=== PATIENT | male | born 1950 | race Caucasian/White ===

== ENCOUNTER 2018-03-19 08:27 | Inpatient (IN) | payer OTHER, BC ==
[2018-03-19] MEDS ORDERED: MIDAZOLAM HCL 2 MG/2 ML SINGLE DOSE VIAL ONE ×2 (11:26)
[2018-03-19] MEDS ORDERED: PROPOFOL 20 ML ONE ×11 (11:26→18:25)
[2018-03-19] MEDS ORDERED: SUCCINYLCHOLINE CHLORIDE 200 MG/10 ML VIAL ONE (11:31)
[2018-03-19] MEDS ORDERED: morphine SULFATE/Preservative Free 0.5 MG/ML (1cc Syringe) ONE (12:05)
[2018-03-19] MEDS ORDERED: BUPIVACAINE HCL/PF 0.25% (2.5MG/ML) 10 ML VIAL ONE (12:23)
[2018-03-19] MEDS ORDERED: LIDOCAINE HCL 0.5%, 5 MG/ML (50mL SDVIAL) ONE (12:24)
[2018-03-19] MEDS ORDERED: KETAMINE HCL 200 MG/20 ML VIAL ONE ×2 (12:25→15:25)
[2018-03-19] MEDS ORDERED: VANCOMYCIN 1,000 MG VIAL (RESTRICTED TO ID ONLY) ONE ×2 (12:25→12:26)
[2018-03-19] MEDS ORDERED: BUPIVACAINE LIPOSOME/PF (EXPAREL) 266 MG/20 ML VIAL NR ONE (12:45)
[2018-03-19] MEDS ORDERED: VANCOMYCIN 1,000 MG VIAL (RESTRICTED TO ID ONLY) IVPB ONE (13:00)
[2018-03-19] MEDS ORDERED: HEPARIN NA (PORCINE) 5,000 UNITS/ML 1ML VIAL ONE (13:06)
[2018-03-19] MEDS ORDERED: SODIUM CHLORIDE 0.9% P/F 10 ML VIAL IJ ONE ×5 (13:07→19:00)
[2018-03-19] MEDS ORDERED: THROMBIN (BOVINE) 5,000 UNIT VIAL TP ONE (13:07)
[2018-03-19] MEDS ORDERED: ceFAZolin SODIUM 1 GM VIAL ONE ×2 (13:08→18:18)
[2018-03-19] MEDS ORDERED: ONDANSETRON 4 MG/2 ML VIAL ONE ×2 (13:08→19:04)
[2018-03-19] MEDS ORDERED: ceFAZolin SODIUM 1 GM VIAL IVPB ONE (13:25)
[2018-03-19] MEDS ORDERED: TRANEXAMIC ACID 1000 MG/10 ML VIAL ONE (14:40)
[2018-03-19] MEDS ORDERED: ROCURONIUM BROMIDE 50 MG/5 ML VIAL ONE (15:06)
[2018-03-19] MEDS ORDERED: LACTATED RINGERS SOLUTION 1,000 ML IV SCH (15:15)
[2018-03-19] MEDS ORDERED: ACETAMINOPHEN 325 MG TABLET (FP) PO SCH (15:30)
[2018-03-19] MEDS ORDERED: ePHEDrine SULFATE 50 MG/1 ML AMPULE ONE (17:49)
[2018-03-19] MEDS ORDERED: LIDOCAINE HCL/PF 2% SDV 5ML VIAL ONE ×2 (18:14→19:04)
--- NOTE | 2018-03-19 18:28 | PN ---
Progress Note (short form) - Note Progress Note: 68M s/p L1-S1 laminectomies; L2-L3, L3-L4, L4-L5, & L5-S1 PLIF, L1-S1 PISF POD # 0. -Pain control: per anaesthesia team; recommend LEATHER STITCHER; No NSAID's. -DVT PPx: - Mechanical only: KIN's, SCD's. -Incentive spirometry q15min. -PT/OT/Rehab, OOB. -WBAT B/L LE. -q4h B/L LE NV checks. -Post-op antibiotics x 2 doses. -NPO until flatus. -f/u AM labs. -f/u drain output. -d/c Schumacher catheter when patient ambulating comfortably. -Care per medical hospitalist team. -Discharge planning: f/u 7-10 days after discharge at [facility] [place] office; call for appointment; ; no bending, lifting more than 5lbs , or twisting x 6 months. -Will follow. David Durham MD (Orthopaedic Surgery).
--- NOTE | 2018-03-19 18:32 | OP ---
Operative Note - Note: Operative Date: 03/19/18 Pre-Operative Diagnosis: Lumbar spinal stenosis. Progressive neurological decline Operation: 1. L1-S1 laminectomies. 2. L2-L3, L3-L4, L4-L5, & L5-S1 PLIF. 3. L1 -S1 PISF. 4. Autograft bone. 5. Allograft bone. 6. Bone marrow aspiration Post-Operative Diagnosis: Same as Pre-op Surgeon: Claudio Durham Fitter Mechanic: David Durham Anesthesiologist/PIG STICKER: Betty Hung Anesthesia: General Specimens Removed: L2-L3, L3-L4, L4-L5, & L5-S1 discs Estimated Blood Loss (mls): 2,400 Drains & Tubes with Location: 1 x superficial drain Blood Volume Replaced (mls): 1,175 (Cell Saver) Fluid Volume Replaced (mls): 4,000 (Crystalloid) Operative Report Dictated: Yes
[2018-03-19] MEDS ORDERED: PHENYLEPHRINE HCL 10 MG/1 ML SINGLE DOSE VIAL ONE (19:00)
[2018-03-19] MEDS ORDERED: KETOROLAC TROMETHAMINE 30 MG/1 ML VIAL ONE (19:00)
[2018-03-19] MEDS ORDERED: VASOPRESSIN 20 UNITS/ML VIAL IV ONE (19:03)
[2018-03-19] MEDS ORDERED: CALCIUM CHLORIDE 1 GM/10 ML *DISP.SYRIN ONE (19:03)
[2018-03-19] MEDS ORDERED: FUROSEMIDE 40 MG/4 ML INJECTABLE VIAL ONE (19:03)
[2018-03-19] MEDS ORDERED: hydrALAZINE HCL 20 MG/ML VIAL ONE (19:04)
[2018-03-19] MEDS ORDERED: GLYCOPYRROLATE 0.2 MG/1 ML VIAL ONE (19:04)
[2018-03-19] MEDS ORDERED: FLUMAZENIL 0.5 MG/5 ML VIAL ONE (19:04)
[2018-03-19] MEDS ORDERED: TIOTROPIUM BROMIDE 2.5 MCG (SPIRIVA) RESPIMAT INHALER IH SCH (20:32)
[2018-03-19] MEDS ORDERED: ONDANSETRON 4 MG/2 ML VIAL IVPUSH PRN (20:32)
[2018-03-19] MEDS: LACTATED RINGERS SOLUTION 1,000 ML IV SCH (20:45)
[2018-03-19] MEDS: ACETAMINOPHEN 1000 MG/100 ML VIAL (NON FORMULARY) IVPB SCH ×2 (20:45→21:20)
--- NOTE | 2018-03-19 21:15 | PN ---
Physical Exam: SUBJECTIVE: Patient seen and examined at PACU. He is awake but still groggy as he just got out of the OR. Patient is s/p L1-S1 PLIF day 0. Patient c/o of back discomfort. States he has not yet passed flatus but has good urine output. He has superficial drain x1. Estimated blood loss was 2400cc. Patient was given IV LR and 1pRBC during the surgery. No reported post-op complications. OBJECTIVE: Vital Signs Period Temp Pulse Resp BP Sys/Avalos Pulse Ox Last 24 Hr 98.0 F 117 18 118/78 100 GENERAL: The patient is awake, drowsy, and oriented x3, in no acute distress. HEAD: Normal with no signs of trauma. EYES: PERRLA, EOMI, sclera anicteric, conjunctiva clear. ENT: Ears normal, nares patent, oropharynx clear without exudates, moist mucous membranes. NECK: Trachea midline, full range of motion, supple. LUNGS: Breath sounds equal, clear to auscultation bilaterally. HEART: Regular rate and rhythm, S1, S2 without murmur, rub or gallop. ABDOMEN: Soft, nontender, nondistended, normoactive bowel sounds EXTREMITIES: 2+ pulses, warm, well-perfused, no edema. NEUROLOGICAL: Cranial nerves II through XII grossly intact. Normal speech, gait not observed. PSYCH: Normal mood, normal affect. SKIN: Warm, dry, normal turgor, no rashes or lesions noted Laboratory Results - last 24 hr 03/19/18 08:48 Blood Type O POSITIVE Antibody Screen Negative Active Medications Generic Name Dose Route Start Last Admin Trade Name Freq PRN Reason Stop Dose Admin Acetaminophen 1,000 mg 03/19/18 20:45 Ofirmev Injection - IVPB 03/21/18 12:46 Q8H ZAIDA Acetaminophen 650 mg 03/19/18 20:45 Tylenol - PO Q6H ZAIDA Cefazolin Sodium/Dextrose 2 gm 03/20/18 02:00 Ancef 2 Gm Premixed Ivpb - IVPB 03/20/18 10:01 Q8H [facility] Fentanyl 50 mcg 03/19/18 15:13 Sublimaze Injection - IVPUSH [id number] PRN PAIN-PACU ORDER X 4 DOSES ONLY Gabapentin 300 mg 03/20/18 22:00 Neurontin - PO BID ZAIDA Hydrochlorothiazide 12.5 mg 03/20/18 10:00 Hctz - PO DAILY [facility] Lactated Ringer's 1,000 mls @ 125 mls/hr 03/19/18 20:45 Lactated Ringers Solution IV ASDIR [facility] Montelukast Sodium 10 mg 03/19/18 20:32 Singulair - PO HS PRN SHORTNESS OF BREATH Non-Formulary Medication 18 mcg 03/19/18 20:32 Tiotropium [place] [Spiriva] IH PRN PRN ASTHMA Ondansetron HCl 4 mg 03/19/18 15:13 Zofran Injection IVPUSH Q6H PRN NAUSEA AND/OR VOMITING Oxycodone HCl 10 mg 03/20/18 22:00 Oxycontin - PO BID ZAIDA Oxycodone HCl 5 mg 03/19/18 15:16 Roxicodone - PO Q3H PRN PAIN LEVEL 1-5 Oxycodone HCl 10 mg 03/19/18 15:16 Roxicodone - PO Q3H PRN PAIN LEVEL 6-10 Valsartan 320 mg 03/20/18 10:00 Diovan - PO DAILY [facility] ASSESSMENT/PLAN: Patient is a 68 year old male with past medical history of asthma, CHF, and HTN , is s/p L1-S1 Posterior Lumbar Interbody Fusion after presenting with low back pain radiating down both LE. #s/p L1-S1 Posterior lumbar interbody fusion -Cefazolin 2 gm q8h started. -incentive spirometry q15 mins -Pain control as per anesthesia. -FIBER PICKER recommended: Oxycodone 5mg q3h for pain level 1-5, Oxycodone 10mg q3h for pain level 6-10 -NPO until flatus. -CBC, BMP in the AM -monitor drain output -PT/OT rehab, weight bearing as tolerated b/l LE -may discontinue thompson catheter when patient is able to ambulate comfortably. #Asthma: controlled -Continue Spiriva 18 mcg IH PRN -Montelukast 10 mg PO HS PRN for SOB #HTN: chronic -continue home medication Telmisartan/HCTZ daily -monitor BP #FEN -IV LR at 75ml/hr -electrolyes wnl, routine bmp monitoring in the AM -NPO until flatus #Prophylaxis -TEDs, SCDs #Disposition -full code Visit type - Emergency Visit Emergency Visit: No - New Patient This patient is new to me today: Yes Date on this admission: 03/20/18 - Critical Care Critical Care patient: No
[2018-03-19] MEDS ORDERED: ACETAMINOPHEN INJECTION 100 ML IVPB ONE (21:25)
--- NOTE | 2018-03-19 21:45 | OP ---
DATE OF OPERATION: 03/19/2018 SURGEON: Claudio Durham MD PRODUCTION FINISHER: David Durham MD PREOPERATIVE DIAGNOSES: Spinal stenosis, L1 to S1, with associated kyphosis, segmental instability. POSTOPERATIVE DIAGNOSES: Spinal stenosis, L1 to S1, with associated kyphosis, segmental instability. OPERATION PERFORMED: 1. Laminectomy, L1 to S1. That is L2, L3, L4, L5, and S1. 2. Posterior lumbar interbody fusion, L2-3, L3-4, L4-5, L5-S1. 3. Pedicle screw instrumentation, L1, L2, L3, L4, L5, S1. 4. Posterolateral arthrodesis, L1, L2, L3, L4, L5, S1. 5. Welch-Pruett osteotomy, L2-3. 6. Bone marrow aspirate concentrate mixed with autologous bone and expanded with allograft bone. 7. Use of biplane fluoroscopy and intraoperative neuromonitoring. 8. Complex wound closure, 25 cm. ANESTHESIA: General. ANTIBIOTICS GIVEN: Kefzol 2 g, vancomycin 1 g; Kefzol 1 g was given intraoperatively. BLOOD LOSS: 2.3 L; 1100 mL Cell Saver blood given back. OPERATION DETAILS: Patient correctly identified, brought into the operating room, placed prone on gel rolls on a spinal table. Each bony prominence was appropriately padded for his upper limbs and lower limbs including iliac crests, pretibial regions as well as prepatellar areas, combined with the sternum and ensuring that the brachial plexus was relaxed by the positioning of the arms. The eyes were appropriately padded as well. The operation performed with the table at 10 degrees of head up, that is anti-Trendelenburg. Routine prep and draping with Betadine scrub solution, wiped off with alcohol, DuraPrep applied. A window drape applied. Midline incision utilized. We exposed from the tip of the spinous process of T12 to S1. A subperiosteal dissection was performed. Lateral fluoroscopic x-rays with Kochers placed in the interspinous processes were utilized to ensure the correct levels for surgical intervention. This was planned L1 to S1. Using Leksell rongeurs and Kerrison upcuts numbers 5 and 6, a central laminectomy was performed. All bone was saved for appropriate bone graft purposes. The appropriate dura which was severely stenosed at L2-3, L3-4, and L4-5 was freed centrally, and then, following this, using osteotomes, the incision was made longitudinally from the pars interarticularis into the inferior facets. Each element imploded inwards to expose the superior facets at each level. Each superior facet was then resected appropriately, keeping all neural elements out of harm's way, packing the gutters with patties and delivering the bone and reactive bone formation in the foramina at every level appropriately. The entire theca was freed. The nerves were visualized, clearly exiting out through the foramina. Once this had been performed, the dura was retracted at L3-4, L4-5, and L5-S1 from the right to left-hand side. Epidural veins were dealt with with bipolar Bovie. The dura, the disks at L2-3, was retracted from left to right. Each disk was dealt with in exactly the same manner. The epidural veins were bovied with bipolar Bovie. Each disk annulotomy was performed with an 11 blade, and this was a cruciate incision, allowing the alfa to enter each disk appropriately. The disks at L2-3 measured 9 mm. The cages at L4-5, L5-S1 measured 12 mm, and the L3-4 cage measured 11 mm. These were Fortilink spacers. Each interbody space was freed of all disk material. We used the alfa, pituitary rongeurs, and serrated curettes appropriately, palpated each disk. All soft tissue removed off the endplates, and each interbody space was packed with autologous bone graft. This was bone harvested from the posterior elements, milled in a [employer] mill, and packed into the interbody space at L2-3, L3-4, L4-5, and L5-S1, using 4 cages, were inserted appropriately. The orthodox of the lordosis was achieved excellently with the insertion of each of these lordosis cages. Each cage itself was packed with autologous bone. A Welch-Pruett osteotomy was then performed at L3-4 in order to facilitate lordosis as well. In order to gain access to the L2-3 disk level, the disk was so shut down posteriorly that a partial corpectomy was necessary in order to achieve this entry into the disk. This was using a Kerrison upcuts. This was thus a partial corpectomy at L3. The pedicles from L1 to S2 were identified using anatomical guidelines and lateral fluoroscopic x-ray. Each pedicle was drilled with a 4.5 drill bit. Each pedicle was palpated with a ball-tip feeler and the screws inserted with no difficulty. They were measured with intraoperative neuromonitoring and found to be well above 20 mA for each screw except in the right L4 screw which measured 13 mA. The rods were contoured onto the actual screws. Screw heads tightened with the appropriate cap devices. The ruth was fixed to the ruth. No crosslink applied. The dura was once again inspected and thoroughly lavaged and found to be completely intact. The muscle was gently retracted off the intertransverse plane and a liberal bone grafting. This was a mixture of cancellous strips which were soaked in bone marrow aspirate concentrate. This bone marrow aspirate concentrate was harvested from the posterior ilium separately. A Jamshidi needle was placed into the ilium for the CD34 stem cells. This was mixed appropriately, thus achieving an augmented autologous/allograft combination with stem cells appropriately. This was from L1 to S1 and the ala of the sacrum. The ala of the sacrum clearly denuded of soft tissue appropriately. With regard to the screw fixation, each screw measured 45 x 6.5 mm excepting the S1 screws which measured 40 x 7.5 mm. Once all were seated, final motor evoked potentials and SSEPs which were monitored throughout the procedure and found no complications and remained at baseline. The pars interarticularis area laterally was infused with Marcaine and simply for pain management, and prior to the procedure, an intrathecal fentanyl as well as Duramorph injection given for pain management accordingly. The muscle was appropriately debrided. Any trimmed muscle that was fragmented was removed. The closure was as follows: Muscle 1 Vicryl, fascia 1 Vicryl, subcutaneous 1 and 2-0 Vicryl, skin 3-0 Monocryl with Steri-Strips. Drainage: 1/8 inch x1. OVERALL COMMENT: Extensive operation went well. No complications. MD LEYDI Hernandez/[id number]
--- NOTE | 2018-03-19 22:09 | PN ---
Teaching Attending Note Name of Resident: Viji Norman ATTENDING PHYSICIAN STATEMENT I saw and evaluated the patient. I reviewed the resident's note and discussed the case with the resident. I agree with the resident's findings and plan as documented. SUBJECTIVE: Patient is s/p L1-S1 laminectomies; L2-L3, L3-L4, L4-L5, L5-S1 posterior lumbar interbody fusion; L1-S1 posterior spinal instrumented fusion. He complains of back pain. OBJECTIVE: Vital Signs Period Temp Pulse Resp BP Sys/Avalos Pulse Ox Last 24 Hr 98.0 F-98.7 F 88-120 14-19 81-136/51-85 97-100 HEART: S1S2, tachycardic LUNGS: Clear ABDOMEN: Soft, non-tender, non-distended, normal BS EXTREMITIES: No edema Laboratory Results - last 24 hr 03/19/18 08:48 Blood Type O POSITIVE Antibody Screen Negative Current Medications Generic Name Dose Route Start Last Admin Trade Name Freq PRN Reason Stop Dose Admin Acetaminophen 1,000 mg 03/19/18 20:45 03/19/18 21:20 Ofirmev Injection - IVPB 03/21/18 12:46 1,000 mg Q8H ZAIDA Administration Acetaminophen 650 mg 03/19/18 20:45 Tylenol - PO Q6H ZAIDA Cefazolin Sodium/Dextrose 2 gm 03/20/18 02:00 Ancef 2 Gm Premixed Ivpb - IVPB 03/20/18 10:01 Q8H [facility]AIDA Fentanyl 50 mcg 03/19/18 15:13 Sublimaze Injection - IVPUSH [id number] PRN PAIN-PACU ORDER X 4 DOSES ONLY Gabapentin 300 mg 03/20/18 22:00 Neurontin - PO BID ZAIDA Hydrochlorothiazide 12.5 mg 03/20/18 10:00 Hctz - PO DAILY [facility]AIDA Lactated Ringer's 1,000 mls @ 125 mls/hr 03/19/18 20:45 Lactated Ringers Solution IV ASDIR ZAIDA Montelukast Sodium 10 mg 03/19/18 20:32 Singulair - PO HS PRN SHORTNESS OF BREATH Non-Formulary Medication 18 mcg 03/19/18 20:32 Tiotropium [place] [Spiriva] IH PRN PRN ASTHMA Ondansetron HCl 4 mg 03/19/18 15:13 Zofran Injection IVPUSH Q6H PRN NAUSEA AND/OR VOMITING Oxycodone HCl 10 mg 03/20/18 22:00 Oxycontin - PO BID ZAIDA Oxycodone HCl 5 mg 03/19/18 15:16 Roxicodone - PO Q3H PRN PAIN LEVEL 1-5 Oxycodone HCl 10 mg 03/19/18 15:16 Roxicodone - PO Q3H PRN PAIN LEVEL 6-10 Valsartan 320 mg 03/20/18 10:00 Diovan - PO DAILY ZAIDA ASSESSMENT AND PLAN: This is a 68 year old man with a history of lumbar spinal stenosis, HTN, CHF, asthma who presented today for lumbar laminectomies and fusions. 1. Lumbar spinal stenosis - s/p multilevel laminectomies and fusions - EBL 2400 cc - monitor hemoglobin - Pain control - Continue Neurontin - Incentive spirometer - Physical therapy - SCDs and TEDs for DVT prophylaxis 2. HTN - Continue Micardis, HCTZ 3. CHF - Stable 4. Asthma - Stable - Continue Nava Florentino
[2018-03-19 22:15] LABS: HEMATOCRIT 40.7 % (35.4-49); HEMOGLOBIN 13.3 GM/dL (11.7-16.9); MCH 29.3 pg (25.7-33.7); MCHC 32.6 g/dl (32.0-35.9); MEAN PLT VOLUME 9.2 fl (7.5-11.1); PLATELET COUNT 207 K/MM3 (134-434); RBC 4.52 M/mm3 (4.00-5.60); RDW 13.7 % (11.9-15.9); WHITE BLOOD COUNT 13.5 K/mm3 (4.0-10.0)
--- NOTE | 2018-03-20 00:39 | CONSULT ---
Consultation: REQUESTING PROVIDER: CONSULT REQUEST: ICU monitoring HISTORY OF PRESENT ILLNESS: The patient is a 68 year old male with a PMH of anterior c spine surgery, HTN, admitted to ICU for monitoring s/p L1-S1 laminectomies, L2-L3, L3-L4, L4-L5, & L5-S1 PLIF, L1-S1 PISF. Blood loss 2400 ml, 1 u of PRBC given in ER. After arrival to ICU he is AAOx3, no acute distress, not complaining of pain, BP 118/98, HR 110, RR 16, Oxyg. Sat 98 on RA, CBC: WBC 13.5, Hgb 13.3, HCT 40.7. PSH: anterior c cpine SH: denies toxic habits. 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 FH: mother OA, father: DM, sister RA, heart disease REVIEW OF SYSTEMS: CONSTITUTIONAL: Absent: fever, chills, diaphoresis, generalized weakness, malaise HEENT: Absent: nasal congestion, throat pain, throat swelling, visual changes CARDIOVASCULAR: Absent: chest pain, syncope, palpitations, irregular heart rate, lightheadedness , RESPIRATORY: Absent: cough, shortness of breath, wheezing, GASTROINTESTINAL: Absent: abdominal pain, abdominal distension, nausea, vomiting, diarrhea, constipation, GENITOURINARY: Absent: dysuria, frequency, urgency, hesitancy, hematuria, MUSCULOSKELETAL: Absent: myalgia, arthralgia, joint swelling NEUROLOGIC: Absent: headache, focal weakness or paresthesias, dizziness, unsteady gait, seizure, mental status changes, bladder or bowel incontinence PSYCHIATRIC: Absent: anxiety, depression PHYSICAL EXAMINATION Vital Signs - 24 hr 03/19/18 03/19/18 03/19/18 09:11 20:17 20:30 Temperature 98.0 F 98.7 F Pulse Rate 88 108 H 109 H Respiratory 18 19 18 Rate Blood Pressure 136/85 87/51 95/62 O2 Sat by Pulse 97 100 100 Oximetry (%) 03/19/18 03/19/18 03/19/18 20:45 21:00 21:15 Temperature Pulse Rate 120 H 116 H 115 H Respiratory 16 18 14 Rate Blood Pressure 81/52 88/54 87/58 O2 Sat by Pulse 98 98 100 Oximetry (%) 03/19/18 03/19/18 03/19/18 21:30 21:45 22:00 Temperature Pulse Rate 116 H 110 H 111 H Respiratory 18 16 16 Rate Blood Pressure 99/74 118/98 104/57 O2 Sat by Pulse 100 98 99 Oximetry (%) 03/19/18 03/19/18 03/19/18 22:15 22:30 23:09 Temperature 98.7 F Pulse Rate 109 H 111 H Respiratory 18 16 Rate Blood Pressure 104/57 90/59 O2 Sat by Pulse 100 98 98 Oximetry (%) 03/19/18 03/20/18 23:22 00:08 Temperature 97.3 F L Pulse Rate 109 H 108 H Respiratory 21 18 Rate Blood Pressure 93/62 105/69 O2 Sat by Pulse Oximetry (%) GENERAL: Awake, alert, and fully oriented, in no acute distress. HEAD: Normal with no signs of trauma. EYES: Pupils equal, round and reactive to light, extraocular movements intact, sclera anicteric, conjunctiva clear. EARS, NOSE, THROAT: Ears normal, nares patent, oropharynx clear without exudates. Moist mucous membranes. NECK: Normal range of motion, supple without lymphadenopathy. LUNGS: Breath sounds equal, clear to auscultation bilaterally. No wheezes, and no crackles. No accessory muscle use. HEART: Regular rate and rhythm, normal S1 and S2 without murmur, rub or gallop. ABDOMEN: Soft, nontender, not distended, normoactive bowel sounds, no guarding, no rebound, no masses. MUSCULOSKELETAL: Normal range of motion at all joints. No bony deformities or tenderness. UPPER EXTREMITIES: No peripheral edema. LOWER EXTREMITIES: 2+ pulses, no peripheral edema. NEUROLOGICAL: Non focal, motor 5/5, sensation intact, no slurred speech. PSYCHIATRIC: Cooperative. Good eye contact. Appropriate mood and affect. SKIN: Warm, dry, normal turgor, no rashes, one drain present, dressing applied. Laboratory Results - last 24 hr 03/19/18 03/19/18 03/19/18 08:48 20:05 20:35 WBC 13.5 H RBC 4.52 Hgb 13.3 Hct 40.7 MCV 90.0 MCH 29.3 MCHC 32.6 RDW 13.7 Plt Count 207 MPV 9.2 Blood Type O POSITIVE O POSITIVE Antibody Screen Negative Active Medications Generic Name Dose Route Start Last Admin Trade Name Freq PRN Reason Stop Dose Admin Acetaminophen 1,000 mg 03/19/18 20:45 03/19/18 21:20 Ofirmev Injection - IVPB 03/21/18 12:46 1,000 mg Q8H [facility] Administration Acetaminophen 650 mg 03/19/18 20:45 Tylenol - PO Q6H [facility] Cefazolin Sodium/Dextrose 2 gm 03/20/18 02:00 Ancef 2 Gm Premixed Ivpb - IVPB 03/20/18 10:01 Q8H [facility] Fentanyl 50 mcg 03/19/18 15:13 03/19/18 22:15 Sublimaze Injection - IVPUSH 50 mcg [id number] PRN Administration PAIN-PACU ORDER X 4 DOSES ONLY Gabapentin 300 mg 03/20/18 22:00 Neurontin - PO BID [facility] Hydrochlorothiazide 12.5 mg 03/20/18 10:00 Hctz - PO DAILY [facility] Lactated Ringer's 1,000 mls @ 125 mls/hr 03/19/18 20:45 Lactated Ringers Solution IV ASDIR [facility] Montelukast Sodium 10 mg 03/19/18 20:32 Singulair - PO HS PRN SHORTNESS OF BREATH Non-Formulary Medication 18 mcg 03/19/18 20:32 Tiotropium [place] [Spiriva] IH PRN PRN ASTHMA Ondansetron HCl 4 mg 03/19/18 15:13 Zofran Injection IVPUSH Q6H PRN NAUSEA AND/OR VOMITING Oxycodone HCl 10 mg 03/20/18 22:00 Oxycontin - PO BID [facility] Oxycodone HCl 5 mg 03/19/18 15:16 Roxicodone - PO Q3H PRN PAIN LEVEL 1-5 Oxycodone HCl 10 mg 03/19/18 15:16 Roxicodone - PO Q3H PRN PAIN LEVEL 6-10 Valsartan 320 mg 03/20/18 10:00 Diovan - PO DAILY [facility] ASSESSMENT/PLAN: The patient is a 68 year old male admitted to ICU for monitoring s/p L1-S1 laminectomies, L2-L3, L3-L4, L4-L5, & L5-S1 PLIF, L1-S1 PISF. -Pain control per anaesthesia team: Oxycodone PRN -f/u surgery recommendations -cont LR at 125 cc/hr -incentive spirometry -neuro checks every 4hrs -Post-op antibiotics x 2 doses. -NPO -cont Zofran for N/V -f/u BMP and CBC in AM -monitor drain output -cont home meds tomorrow -continue Schumacher for now, DC when ambulating -DVT PPx: mechanical, scds Dispo: We will continue to follow the patient. Thank you for this consultative opportunity. Problem List - Problems (1) Status post lumbar surgery Code(s): Z98.890 - OTHER SPECIFIED POSTPROCEDURAL STATES Visit type - Emergency Visit Emergency Visit: Yes ED Registration Date: 03/19/18 Care time: The patient presented to the Emergency Department on the above date and was hospitalized for further evaluation of their emergent condition. - New Patient This patient is new to me today: Yes Date on this admission: 03/20/18 - Critical Care Critical Care patient: Yes Total Critical Care Time (in minutes): 40 Critical Care Statement: The care of this patient involved high complexity decision making to prevent further life threatening deterioration of the patient 's condition and/or to evaluate & treat vital organ system(s) failure or risk of failure.
[2018-03-20] MEDS: ONDANSETRON 4 MG/2 ML VIAL IVPUSH PRN ×2 (01:47→10:47)
[2018-03-20] MEDS: ceFAZolin 2 GRAM PREMIX BAG IVPB SCH ×2 (03:05→10:16)
[2018-03-20] MEDS: ACETAMINOPHEN 1000 MG/100 ML VIAL (NON FORMULARY) IVPB SCH ×3 (05:45→20:47)
[2018-03-20 06:29] LABS: MCH 29.2 pg (25.7-33.7); MCHC 32.4 g/dl (32.0-35.9); MEAN CELL VOLUME 90.2 fl (80-96); MEAN PLT VOLUME 8.9 fl (7.5-11.1); PLATELET COUNT 157 K/MM3 (134-434); RBC 3.77 M/mm3 (4.00-5.60); RDW 14.1 % (11.9-15.9); WHITE BLOOD COUNT 12.9 K/mm3 (4.0-10.0)
[2018-03-20 06:49] LABS: ANION GAP 11 (8-16); BLOOD UREA NITROGEN 16 mg/dL (7-18); CALCIUM 7.8 mg/dL (8.5-10.1); CHLORIDE 104 mmol/L (98-107); CO2 26 mmol/L (21-32); GLUCOSE,RANDOM 152 mg/dL (74-106); POTASSIUM 4.3 mmol/L (3.5-5.1); SODIUM 141 mmol/L (136-145)
[2018-03-20 06:51] LABS: CREATININE 1.2 mg/dL (0.7-1.3)
--- NOTE | 2018-03-20 09:35 | PN ---
Progress Note (short form) - Note Progress Note: Anesthesia postop note 68 y/o M, s/p GA for L1S1 PLIF, duramorph and fentanyl IT for postop pain management. POD#1, vss, aaox3, no complaints, sensory motor intact distally. No anesthesia complications.
[2018-03-20] MEDS ORDERED: HYDROCHLOROTHIAZIDE 12.5 MG CAPSULE (FP) PO SCH (10:00)
[2018-03-20] MEDS ORDERED: PATIENT'S OWN MEDICATION (NON-FORMULARY) (Telmisartan/Hydrochlorothiazid [Micardis Hct 80- PO SCH (10:00)
[2018-03-20] MEDS ORDERED: VALSARTAN 160 MG TABLET (UD) PO SCH (10:00)
--- NOTE | 2018-03-20 11:38 | PN ---
Teaching Attending Note Name of Resident: Cass Kohler ATTENDING PHYSICIAN STATEMENT I saw and evaluated the patient. I reviewed the resident's note and discussed the case with the resident. I agree with the resident's findings and plan as documented. SUBJECTIVE: Pt seen and examined in the ICU. Pain controlled. No shortness of breath or chest pain. +flatus this AM. OBJECTIVE: Vital Signs Period Temp Pulse Resp BP Sys/Avalos Pulse Ox Last 24 Hr 97.3 F-98.7 F 100-120 12-22 81-124/51-98 94-100 Intake & Output 03/17/18 03/18/18 03/19/18 03/20/18 23:59 23:59 23:59 23:59 Intake Total 6375 1125 Output Total 3400 300 Balance 2975 825 Gen: NAD at rest Heart: RRR Lung: decreased breath sounds at the bases Abd: soft, nontender Ext: no edema Drain with serosanguinous drainage CBC, BMP 03/20/18 05:30 03/20/18 05:30 Active Medications Acetaminophen (Ofirmev Injection -) 1,000 mg IVPB Q8H [facility] Stop: 03/21/18 12:46 Last Admin: 03/20/18 05:45 Dose: 1,000 mg Acetaminophen (Tylenol -) 650 mg PO Q6H [facility] Fentanyl (Sublimaze Injection -) 50 mcg IVPUSH [id number] PRN PRN Reason: PAIN-PACU ORDER X 4 DOSES ONLY Last Admin: 03/19/18 22:15 Dose: 50 mcg Gabapentin (Neurontin -) 300 mg PO BID [facility] Hydrochlorothiazide (Hctz -) 12.5 mg PO DAILY [facility] Last Admin: 03/20/18 10:16 Dose: 12.5 mg Lactated Ringer's (Lactated Ringers Solution) 1,000 mls @ 125 mls/hr IV ASDIR ZAIDA Last Admin: 03/19/18 20:45 Dose: Not Given Montelukast Sodium (Singulair -) 10 mg PO HS PRN PRN Reason: SHORTNESS OF BREATH Non-Formulary Medication (Tiotropium [place] [Spiriva]) 18 mcg IH PRN PRN PRN Reason: ASTHMA Oxycodone HCl (Oxycontin -) 10 mg PO BID [facility] Oxycodone HCl (Roxicodone -) 5 mg PO Q3H PRN PRN Reason: PAIN LEVEL 1-5 Oxycodone HCl (Roxicodone -) 10 mg PO Q3H PRN PRN Reason: PAIN LEVEL 6-10 Valsartan (Diovan -) 320 mg PO DAILY [facility]AIDA Last Admin: 03/20/18 10:16 Dose: 320 mg ASSESSMENT AND PLAN: Lumbar Spinal Stenosis s/p L1-S1 Laminectomies/Posterior Fusions Acute Blood Loss Anemia HTN Asthma Hyperlipidemia - pain control - incentive spirometry - PO as tolerated - monitor drain output - jay d/c'd - rehab/PT - DVT prophylaxis/disposition per surgery
--- NOTE | 2018-03-20 12:01 | PN ---
Physical Exam: SUBJECTIVE: Patient seen and examined at bedside. no acute events overnight. patient is complaining of minimal pain and some slight nausea. his drain is putting out minimal output. he denies any CP/SOB/N/V. OBJECTIVE: Vital Signs Period Temp Pulse Resp BP Sys/Avalos Pulse Ox Last 24 Hr 97.3 F-98.7 F 100-120 12-22 81-124/51-98 94-100 GENERAL: The patient is awake, alert, and fully oriented, in no acute distress.. LUNGS: Breath sounds equal, clear to auscultation bilaterally, no wheezes, no crackles, no accessory muscle use. HEART: Regular rate and rhythm, S1, S2 without murmur, rub or gallop. ABDOMEN: Soft, nontender, nondistended, normoactive bowel sounds, no guarding, no rebound, no hepatosplenomegaly, no masses. EXTREMITIES: 2+ pulses, warm, well-perfused, no edema. NEUROLOGICAL: Cranial nerves II through XII grossly intact. Normal speech, gait not observed. PSYCH: Normal mood, normal affect. SKIN: Warm, dry, normal turgor, no rashes or lesions noted Laboratory Results - last 24 hr 03/19/18 03/19/18 03/19/18 08:48 20:05 20:35 WBC 13.5 H RBC 4.52 Hgb 13.3 Hct 40.7 MCV 90.0 MCH 29.3 MCHC 32.6 RDW 13.7 Plt Count 207 MPV 9.2 Sodium Potassium Chloride Carbon Dioxide Anion Gap BUN Creatinine Creat Clearance w eGFR Random Glucose Calcium Blood Type O POSITIVE O POSITIVE Antibody Screen Negative 03/20/18 03/20/18 05:30 05:30 WBC 12.9 H RBC 3.77 L Hgb 11.0 L Hct 34.0 L D MCV 90.2 MCH 29.2 MCHC 32.4 RDW 14.1 Plt Count 157 D MPV 8.9 Sodium 141 Potassium 4.3 Chloride 104 Carbon Dioxide 26 Anion Gap 11 BUN 16 Creatinine 1.2 Creat Clearance w eGFR > 60 Random Glucose 152 H Calcium 7.8 L Blood Type Antibody Screen Active Medications Generic Name Dose Route Start Last Admin Trade Name Freq PRN Reason Stop Dose Admin Acetaminophen 1,000 mg 03/19/18 20:45 03/20/18 11:44 Ofirmev Injection - IVPB 03/21/18 12:46 1,000 mg Q8H ZAIDA Administration Acetaminophen 650 mg 03/19/18 20:45 Tylenol - PO Q6H ZAIDA Fentanyl 50 mcg 03/19/18 15:13 03/19/18 22:15 Sublimaze Injection - IVPUSH 50 mcg [id number] PRN Administration PAIN-PACU ORDER X 4 DOSES ONLY Gabapentin 300 mg 03/20/18 22:00 Neurontin - PO BID ZAIDA Hydrochlorothiazide 12.5 mg 03/20/18 10:00 03/20/18 10:16 Hctz - PO 12.5 mg DAILY ZAIDA Administration Lactated Ringer's 1,000 mls @ 125 mls/hr 03/19/18 20:45 03/19/18 20:45 Lactated Ringers Solution IV Not Given ASDIR ZAIDA Montelukast Sodium 10 mg 03/19/18 20:32 Singulair - PO HS PRN SHORTNESS OF BREATH Non-Formulary Medication 18 mcg 03/19/18 20:32 Tiotropium [place] [Spiriva] IH PRN PRN ASTHMA Oxycodone HCl 10 mg 03/20/18 22:00 Oxycontin - PO BID ZAIDA Oxycodone HCl 5 mg 03/19/18 15:16 Roxicodone - PO Q3H PRN PAIN LEVEL 1-5 Oxycodone HCl 10 mg 03/19/18 15:16 Roxicodone - PO Q3H PRN PAIN LEVEL 6-10 Valsartan 320 mg 03/20/18 10:00 03/20/18 10:16 Diovan - PO 320 mg DAILY ZAIDA Administration ASSESSMENT/PLAN: 68 y/o male with PMH of asthma, CHF, HTN, is s/p L1-S1 laminectomies, L2-S1 PLIF , L1-S1 PISF now POD #1. POD#1: L1-S1 laminectomies,L2-S1 PLIF,L1-S1 PISF -oxycodone for pain control -zofran for nausea -monitor drain output -incentive spirometry -OOB to chair -clear liquid diet HTN/HLD:: restart home medications F/E/N: not on standing fluids replete electrolytes when necessary clear liquid diet dispo: dispo as per surgery Problem List - Problems (1) Status post lumbar surgery Code(s): Z98.890 - OTHER SPECIFIED POSTPROCEDURAL STATES Visit type - Emergency Visit Emergency Visit: Yes ED Registration Date: 03/19/18 Care time: The patient presented to the Emergency Department on the above date and was hospitalized for further evaluation of their emergent condition. - New Patient This patient is new to me today: Yes Date on this admission: 03/20/18 - Critical Care Critical Care patient: Yes Total Critical Care Time (in minutes): 35 Critical Care Statement: The care of this patient involved high complexity decision making to prevent further life threatening deterioration of the patient 's condition and/or to evaluate & treat vital organ system(s) failure or risk of failure.
[2018-03-20] MEDS: oxyCODONE HCL 5 MG TABLET PO PRN ×3 (12:37→19:30)
--- NOTE | 2018-03-20 14:41 | PN ---
Teaching Attending Note Name of Resident: Kika Rey ATTENDING PHYSICIAN STATEMENT I saw and evaluated the patient. I reviewed the resident's note and discussed the case with the resident. I agree with the resident's findings and plan as documented. SUBJECTIVE:asymptomatic. states slight discomfort in the back. +flatus this AM. no numbness or tingling in the hands or feet OBJECTIVE: Last Vital Signs Temp Pulse Resp BP Pulse Ox 98.5 F 119 H 104 H 80/56 94 L 03/20/18 14:18 03/20/18 14:18 03/20/18 14:18 03/20/18 14:18 03/20/18 08:20 General NAD CV S1 S2 RRR no murmur/rub/gallop Lungs decreased breath sounds B/L bases Back- surgical dressing intact. no swelling or tenderness. +hemovac in place Extremities strength and sensation grossly intact ASSESSMENT AND PLAN: 68yo M with PMH HTN. CHF and ashthma and lumbar stenosis 1. Lumbar stenosis- s/p multilevel laminectomies and fusions. tolerated surgery well. significant blood loss during surgery with cell saver and hemovac placed. can advance diet as now having flatus. thompson in place until able to ambulate. further recommendations per ortho. pain control, incentive spirometer 2. Acute blood loss anemia- due to surgery. 2400cc EBV, 1,175 viola saver with hemovac in place. will monitor hgb closely. no indication for transfusion at this time 3. hypotnesion- likely medication induced. would hold oral antihypertensives at this time and re-start as needed. will bolus 1 L NS at this time and repeat BP 4. asthma- cont inhlaers 5. DVT ppx- SCD. would hold pharmacologic anticoagulation in setting of recent surgery 6. would cont to monitor in MICU with labile BP The care of this patient involved high complexity decision making to prevent further life threatening deterioration of the patient's condition and/or to evaluate & treat vital organ system(s) failure or risk of failure. 40 mins
[2018-03-20] MEDS ORDERED: SODIUM CHLORIDE 0.9% 500 ML INFUS.BAG IV ONE ×2 (14:57→18:50)
[2018-03-20 17:10] LABS: BASO % 0.1 % (0-2.0); HEMATOCRIT 26.2 % (35.4-49); HEMOGLOBIN 8.9 GM/dL (11.7-16.9); LYMPH % 9.4 % (8-40); MCH 30.3 pg (25.7-33.7); MCHC 33.8 g/dl (32.0-35.9); MEAN CELL VOLUME 89.4 fl (80-96); MEAN PLT VOLUME 8.5 fl (7.5-11.1); MONO % 14.4 % (3.8-10.2); NEUT % 76.1 % (42.8-82.8); PLATELET COUNT 158 K/MM3 (134-434); RBC 2.93 M/mm3 (4.00-5.60); RDW 14.1 % (11.9-15.9)
--- NOTE | 2018-03-20 17:44 | PN ---
Progress Note (short form) - Note Progress Note: 68M doing well s/p L1-S1 laminectomies; L2-L3, L3-L4, L4-L5, & L5-S1 PLIF, L1- S1 PISF POD #1. Pain well controlled. No acute events overnight. Pt. denies any positional or persistent headaches, chest pain, shortness of breath, nausea, vomiting, chills, sweats. Ambulated in hallway with PT. (+) Schumacher catheter removed; (+) Flatus; (-) BM. Tolerating clear liquid diet. All labs, vitals, I&O reviewed. PE: AAO x 3, NAD. L-Spine: Dressing C/D/I. Drain intact & in place. Output: not yet charted. B/L LE Motor: All muscles supplying hips, knees, ankles, hindfeet, midfeet, and forefeet intact & at least 3/5. (+) Functional weakness secondary to surgery , back pain, and post-operative deconditioning. B/L LE Sensory: L2-S1 2/2. B/L LE Vascular: Normal arterial supply & venous drainage. 68M doing well s/p L1-S1 laminectomies; L2-L3, L3-L4, L4-L5, & L5-S1 PLIF, L1- S1 PISF POD #1. -Pain control: per anaesthesia team; No NSAID's. -f/u trial of void; if failed by 8 hours after removal of Schumacher catheter, ok to decompress bladder with catheter; do not rely on bladder scanner. -DVT PPx: - Mechanical only: KIN's, SCD's. -Incentive spirometry q15min. -PT/OT/Rehab, OOB. -WBAT B/L LE. -q4h B/L LE [place] checks. -Advance diet as tolerated. -f/u AM labs. -f/u drain output. -d/c Schumacher catheter when patient ambulating comfortably. -Care per medical hospitalist team. -Discharge planning: f/u 7-10 days after discharge at [facility] office; call for appointment; ; no bending, lifting more than 5lbs , or twisting x 6 months. -Will follow. David Durham MD (Orthopaedic Surgery).
[2018-03-20] MEDS ORDERED: TAMSULOSIN HCL 0.4 MG CAP.ER.24H (FP) PO ONE (18:45)
--- NOTE | 2018-03-20 20:42 | PN ---
Physical Exam: SUBJECTIVE: Patient seen and examined this morning in the ICU POD#1 S/p L1-S1 laminectomies and fusions. Pt complaining of slight discomfort and stiffness. Passing gas currently. Pre-Op shooting pain down the lower extremities has improved as per patient. Denies fevers, chills, chest pain, SOB, Vomiting, diarrhea, constipation. OBJECTIVE: Vital Signs Period Temp Pulse Resp BP Sys/Avalos Pulse Ox Last 24 Hr 97.3 F-99.2 F 78-120 12-23 80-124/47-98 94-100 GENERAL: The patient is awake, alert, and fully oriented, in no acute distress. EYES: PERRL, EOMI THROAT: Oropharynx clear without exudates, moist mucous membranes. NECK: Supple, No JVD. LUNGS: Breath sounds equal, clear to auscultation bilaterally, no wheezes HEART: Regular rate and rhythm, S1, S2 without murmur. ABDOMEN: Soft, nontender, nondistended, normoactive bowel sounds BACK: Surgical dressings intact without surrounding erythema, tenderness or swelling. Hemovac present draining red blood. EXTREMITIES: 2+ pulses, no edema. L4-S1 sensation grossly intact. LE Muscle strength 5/5 b/l SKIN: Warm, dry, no rashes or lesions noted Laboratory Results - last 24 hr 03/19/18 03/19/18 03/20/18 20:05 20:35 05:30 WBC 13.5 H 12.9 H RBC 4.52 3.77 L Hgb 13.3 11.0 L Hct 40.7 34.0 L D MCV 90.0 90.2 MCH 29.3 29.2 MCHC 32.6 32.4 RDW 13.7 14.1 Plt Count 207 157 D MPV 9.2 8.9 Absolute Neuts (auto) Neutrophils % Lymphocytes % Monocytes % Eosinophils % Basophils % Nucleated RBC % Sodium Potassium Chloride Carbon Dioxide Anion Gap BUN Creatinine Creat Clearance w eGFR Random Glucose Calcium Blood Type O POSITIVE 03/20/18 03/20/18 05:30 16:45 WBC 10.0 RBC 2.93 L Hgb 8.9 L Hct 26.2 L D MCV 89.4 MCH 30.3 MCHC 33.8 RDW 14.1 Plt Count 158 MPV 8.5 Absolute Neuts (auto) 7.6 Neutrophils % 76.1 Lymphocytes % 9.4 Monocytes % 14.4 H Eosinophils % 0.0 Basophils % 0.1 Nucleated RBC % 0 Sodium 141 Potassium 4.3 Chloride 104 Carbon Dioxide 26 Anion Gap 11 BUN 16 Creatinine 1.2 Creat Clearance w eGFR > 60 Random Glucose 152 H Calcium 7.8 L Blood Type Active Medications Acetaminophen (Ofirmev Injection -) 1,000 mg IVPB Q8H [facility] Stop: 03/21/18 12:46 Last Admin: 03/20/18 11:44 Dose: 1,000 mg Acetaminophen (Tylenol -) 650 mg PO Q6HPO [facility] Fentanyl (Sublimaze Injection -) 50 mcg IVPUSH [id number] PRN PRN Reason: PAIN-PACU ORDER X 4 DOSES ONLY Last Admin: 03/19/18 22:15 Dose: 50 mcg Gabapentin (Neurontin -) 300 mg PO BID [facility] Lactated Ringer's (Lactated Ringers Solution) 1,000 mls @ 125 mls/hr IV ASDIR [facility] Last Admin: 03/19/18 20:45 Dose: Not Given Montelukast Sodium (Singulair -) 10 mg PO HS [facility] Oxycodone HCl (Oxycontin -) 10 mg PO BID [facility] Oxycodone HCl (Roxicodone -) 5 mg PO Q3H PRN PRN Reason: PAIN LEVEL 1-5 Last Admin: 03/20/18 12:37 Dose: 5 mg Oxycodone HCl (Roxicodone -) 10 mg PO Q3H PRN PRN Reason: PAIN LEVEL 6-10 Last Admin: 03/20/18 19:30 Dose: 10 mg Tiotropium [place] (Spiriva Respimat) 2 puff IH DAILY [facility] ASSESSMENT/PLAN: 68 yo male in the ICU s/p L1-S1 PLIF POD #1 1. Lumbar-Spine stenosis s/p L1-S1 PLIF POD #1 (03/19) - Pain controled via Acetaminophen 650 mg PO Q6H PRN and 1,000 mg IVPB Q8H, Patient says he does not want to use anything stronger - Has passed flatus, Diet advanced to Clear liquids - Schumacher present draining clear yellow urine, Can D/C once able to ambulate with PT/OT - OOB as tolerated - Incentive Spirometry - Will follow Ortho rec's 2. Acute blood loss anemia - Loss of approx. 2400cc's blood due to surgery - Hemovac drain currently in place - Monitor H&H for transfusion - No immediate indication for transfusion 3. Asthma - Continue Spiriva 2 puff IH DAILY ZAIDA - Continue Singulair 10 mg PO HS ZAIDA 4. Prophylaxis - DVT: SCDs 5. FEN - Lactated Ringers @ 120 mls/hr IV - Lytes wnl - Clear Liquid Diet Dispo: ICU for close monitoring Visit type - Emergency Visit Emergency Visit: No - New Patient This patient is new to me today: Yes Date on this admission: 03/20/18 - Critical Care Critical Care patient: Yes Total Critical Care Time (in minutes): 40 Critical Care Statement: The care of this patient involved high complexity decision making to prevent further life threatening deterioration of the patient 's condition and/or to evaluate & treat vital organ system(s) failure or risk of failure.
[2018-03-20] MEDS: LACTATED RINGERS SOLUTION 1,000 ML IV SCH (20:47)
[2018-03-20] MEDS: MONTELUKAST NA 10 MG TABLET PO SCH (21:01)
[2018-03-20] MEDS: GABAPENTIN 300 MG CAPSULE (FP) PO SCH (21:02)
[2018-03-20] MEDS: oxyCODONE HCL 10 MG SUSTAINED ACTING TABLET PO SCH (23:18)
[2018-03-21] MEDS: oxyCODONE HCL 5 MG TABLET PO PRN ×3 (04:35→19:14)
[2018-03-21] MEDS: ACETAMINOPHEN 1000 MG/100 ML VIAL (NON FORMULARY) IVPB SCH ×2 (04:35→13:00)
[2018-03-21 06:28] LABS: HEMATOCRIT 24.7 % (35.4-49); HEMOGLOBIN 8.2 GM/dL (11.7-16.9); MCH 29.7 pg (25.7-33.7); MCHC 33.3 g/dl (32.0-35.9); MEAN CELL VOLUME 89.1 fl (80-96); MEAN PLT VOLUME 8.7 fl (7.5-11.1); PLATELET COUNT 137 K/MM3 (134-434); RBC 2.77 M/mm3 (4.00-5.60); RDW 13.5 % (11.9-15.9); WHITE BLOOD COUNT 8.4 K/mm3 (4.0-10.0)
[2018-03-21 07:02] LABS: ALBUMIN 2.8 g/dl (3.4-5.0); ANION GAP 9 MMOL/L (8-16); BLOOD UREA NITROGEN 11 mg/dL (7-18); CALCIUM 7.4 mg/dL (8.5-10.1); CHLORIDE 103 mmol/L (98-107); CO2 28 mmol/L (21-32); GLUCOSE,RANDOM 108 mg/dL (74-106); MAGNESIUM 1.5 mg/dL (1.8-2.4); PHOSPHOROUS 2.3 mg/dL (2.5-4.9); POTASSIUM 3.6 mmol/L (3.5-5.1); SODIUM 140 mmol/L (136-145)
[2018-03-21 07:31] LABS: SGPT/ALT 49 U/L (12-78)
[2018-03-21] MEDS ORDERED: NAPH,MB-DB/K PH,MBDB POWDER PACKET PO ONE (07:44)
[2018-03-21] MEDS ORDERED: MAGNESIUM OXIDE 400 MG TABLET (FP) PO ONE (08:00)
[2018-03-21 08:51] LABS: ALK PHOS 36 U/L (45-117); BILIRUBIN,TOTAL 0.5 mg/dL (0.2-1.0); CREATININE 0.4 mg/dL (0.7-1.3); SGOT/AST 79 U/L (15-37); TOT PROT 4.9 g/dl (6.4-8.2)
[2018-03-21] MEDS ORDERED: SODIUM CHLORIDE 0.9% 500 ML INFUS.BAG IV ONE (08:51)
[2018-03-21] MEDS: GABAPENTIN 300 MG CAPSULE (FP) PO SCH ×2 (09:32→21:40)
[2018-03-21] MEDS: oxyCODONE HCL 10 MG SUSTAINED ACTING TABLET PO SCH ×2 (09:32→21:40)
[2018-03-21] MEDS ORDERED: TIOTROPIUM BROMIDE 2.5 MCG (SPIRIVA) RESPIMAT INHALER IH SCH (10:00)
--- NOTE | 2018-03-21 12:11 | PN ---
Teaching Attending Note Name of Resident: Cass Kohler ATTENDING PHYSICIAN STATEMENT I saw and evaluated the patient. I reviewed the resident's note and discussed the case with the resident. I agree with the resident's findings and plan as documented. SUBJECTIVE: Pt seen and examined in the ICU. Pain under control. H/H dropping, no reports of bleeding. Denies shortness of breath or chest pain. Tolerating liquids. OBJECTIVE: Vital Signs Period Temp Pulse Resp BP Sys/Avalos Pulse Ox Last 24 Hr 98.4 F-99.2 F 78-122 20-23 80-143/47-84 94-95 Intake & Output 03/18/18 03/19/18 03/20/18 03/21/18 23:59 23:59 23:59 23:59 Intake Total 6375 3720 1175 Output Total 3400 850 1725 Balance 2975 2870 -550 Weight 102.172 kg Gen: NAD at rest Heart: tachycardic, regular Lung: decreased breath sounds at the bases Abd: soft, nontender Ext: no edema CBC, BMP 03/21/18 05:30 03/21/18 05:30 Active Medications Acetaminophen (Ofirmev Injection -) 1,000 mg IVPB Q8H [facility] Stop: 03/21/18 12:46 Last Admin: 03/21/18 04:35 Dose: 1,000 mg Acetaminophen (Tylenol -) 650 mg PO Q6HPO [facility] Gabapentin (Neurontin -) 300 mg PO BID [facility] Last Admin: 03/21/18 09:32 Dose: 300 mg Montelukast Sodium (Singulair -) 10 mg PO HS [facility] Last Admin: 03/20/18 21:01 Dose: Not Given Oxycodone HCl (Oxycontin -) 10 mg PO BID [facility] Last Admin: 03/21/18 09:32 Dose: 10 mg Oxycodone HCl (Roxicodone -) 5 mg PO Q3H PRN PRN Reason: PAIN LEVEL 1-5 Last Admin: 03/20/18 12:37 Dose: 5 mg Oxycodone HCl (Roxicodone -) 15 mg PO Q3H PRN PRN Reason: PAIN LEVEL 6-10 Tiotropium [place] (Spiriva Respimat) 2 puff IH DAILY [facility] Last Admin: 03/21/18 09:37 Dose: Not Given ASSESSMENT AND PLAN: Lumbar Spinal Stenosis s/p L1-S1 Laminectomies/Posterior Fusions Acute Blood Loss Anemia HTN Asthma Hyperlipidemia - pain control - incentive spirometry - PO as tolerated - monitor H/H - rehab/PT - can monitor on floor - DVT prophylaxis
[2018-03-21 12:37] LABS: HEMATOCRIT 25.8 % (35.4-49); HEMOGLOBIN 8.6 GM/dL (11.7-16.9); MCH 29.9 pg (25.7-33.7); MCHC 33.4 g/dl (32.0-35.9); MEAN CELL VOLUME 89.5 fl (80-96); PLATELET COUNT 165 K/MM3 (134-434); RBC 2.88 M/mm3 (4.00-5.60); RDW 13.6 % (11.9-15.9); WHITE BLOOD COUNT 8.2 K/mm3 (4.0-10.0)
--- NOTE | 2018-03-21 13:28 | PN ---
Physical Exam: SUBJECTIVE: Patient seen and examined at [facility]. OBJECTIVE: Vital Signs Period Temp Pulse Resp BP Sys/Avalos Pulse Ox Last 24 Hr 98.4 F-99.2 F 78-122 20-23 80-153/47-84 94-95 GENERAL: The patient is awake, alert, and fully oriented, in no acute distress. HEAD: Normal with no signs of trauma. EYES: PERRL, extraocular movements intact, sclera anicteric, conjunctiva clear. No ptosis. ENT: Ears normal, nares patent, oropharynx clear without exudates, moist mucous membranes. NECK: Trachea midline, full range of motion, supple. LUNGS: Breath sounds equal, clear to auscultation bilaterally, no wheezes, no crackles, no accessory muscle use. HEART: Regular rate and rhythm, S1, S2 without murmur, rub or gallop. ABDOMEN: Soft, nontender, nondistended, normoactive bowel sounds, no guarding, no rebound, no hepatosplenomegaly, no masses. EXTREMITIES: 2+ pulses, warm, well-perfused, no edema. NEUROLOGICAL: Cranial nerves II through XII grossly intact. Normal speech, gait not observed. PSYCH: Normal mood, normal affect. SKIN: Warm, dry, normal turgor, no rashes or lesions noted Laboratory Results - last 24 hr 03/20/18 03/21/18 03/21/18 16:45 05:30 05:30 WBC 10.0 8.4 RBC 2.93 L 2.77 L Hgb 8.9 L 8.2 L Hct 26.2 L D 24.7 L MCV 89.4 89.1 MCH 30.3 29.7 MCHC 33.8 33.3 RDW 14.1 13.5 Plt Count 158 137 MPV 8.5 8.7 Absolute Neuts (auto) 7.6 Neutrophils % 76.1 Lymphocytes % 9.4 Monocytes % 14.4 H Eosinophils % 0.0 Basophils % 0.1 Nucleated RBC % 0 Sodium 140 Potassium 3.6 Chloride 103 Carbon Dioxide 28 Anion Gap 9 BUN 11 Creatinine 0.4 L Creat Clearance w eGFR > 60 Random Glucose 108 H D Calcium 7.4 L Phosphorus 2.3 L Magnesium 1.5 L Total Bilirubin 0.5 AST 79 H ALT 49 Alkaline Phosphatase 36 L Total Protein 4.9 L Albumin 2.8 L 03/21/18 11:21 WBC 8.2 RBC 2.88 L Hgb 8.6 L Hct 25.8 L MCV 89.5 MCH 29.9 MCHC 33.4 RDW 13.6 Plt Count 165 D MPV 8.0 Absolute Neuts (auto) Neutrophils % Lymphocytes % Monocytes % Eosinophils % Basophils % Nucleated RBC % Sodium Potassium Chloride Carbon Dioxide Anion Gap BUN Creatinine Creat Clearance w eGFR Random Glucose Calcium Phosphorus Magnesium Total Bilirubin AST ALT Alkaline Phosphatase Total Protein Albumin Active Medications Generic Name Dose Route Start Last Admin Trade Name Freq PRN Reason Stop Dose Admin Acetaminophen 650 mg 03/21/18 18:46 Tylenol - PO Q6HPO [facility]AIDA Gabapentin 300 mg 03/20/18 22:00 03/21/18 09:32 Neurontin - PO 300 mg BID ZAIDA Administration Montelukast Sodium 10 mg 03/20/18 22:00 03/20/18 21:01 Singulair - PO Not Given HS ZAIDA Oxycodone HCl 10 mg 03/20/18 22:00 03/21/18 09:32 Oxycontin - PO 10 mg BID ZAIDA Administration Oxycodone HCl 5 mg 03/19/18 15:16 03/20/18 12:37 Roxicodone - PO 5 mg Q3H PRN Administration PAIN LEVEL 1-5 Oxycodone HCl 15 mg 03/21/18 09:15 Roxicodone - PO Q3H PRN PAIN LEVEL 6-10 Tiotropium [place] 2 puff 03/21/18 10:00 03/21/18 09:37 Spiriva Respimat IH Not Given DAILY [facility] ASSESSMENT/PLAN: Problem List - Problems (1) Status post lumbar surgery Code(s): Z98.890 - OTHER SPECIFIED POSTPROCEDURAL STATES
--- NOTE | 2018-03-21 13:39 | PN ---
Physical Exam: SUBJECTIVE: Patient seen and examined at bedside. had some pain overnight requiring pain medications and was still hypotensive and consequently received 1L bolus of fluids. patient had minimal urine output overnight only 600cc. this morning seems to be urinating more however. denies any CP/SOB/N/V. OBJECTIVE: Vital Signs Period Temp Pulse Resp BP Sys/Avalos Pulse Ox Last 24 Hr 98.4 F-99.2 F 78-122 20-23 80-153/47-84 94-95 GENERAL: The patient is awake, alert, and fully oriented, in no acute distress. LUNGS: slightly diminished breath sounds however clear to auscultation B/L HEART: tachycardic, S1, S2 without murmur, rub or gallop. ABDOMEN: slightly distended; non-tender to palpation. EXTREMITIES: 2+ pulses, warm, well-perfused, no edema. NEUROLOGICAL: Cranial nerves II through XII grossly intact. Normal speech, gait not observed. PSYCH: Normal mood, normal affect. SKIN: Warm, dry, normal turgor, no rashes or lesions noted Laboratory Results - last 24 hr 03/20/18 03/21/18 03/21/18 16:45 05:30 05:30 WBC 10.0 8.4 RBC 2.93 L 2.77 L Hgb 8.9 L 8.2 L Hct 26.2 L D 24.7 L MCV 89.4 89.1 MCH 30.3 29.7 MCHC 33.8 33.3 RDW 14.1 13.5 Plt Count 158 137 MPV 8.5 8.7 Absolute Neuts (auto) 7.6 Neutrophils % 76.1 Lymphocytes % 9.4 Monocytes % 14.4 H Eosinophils % 0.0 Basophils % 0.1 Nucleated RBC % 0 Sodium 140 Potassium 3.6 Chloride 103 Carbon Dioxide 28 Anion Gap 9 BUN 11 Creatinine 0.4 L Creat Clearance w eGFR > 60 Random Glucose 108 H D Calcium 7.4 L Phosphorus 2.3 L Magnesium 1.5 L Total Bilirubin 0.5 AST 79 H ALT 49 Alkaline Phosphatase 36 L Total Protein 4.9 L Albumin 2.8 L 03/21/18 11:21 WBC 8.2 RBC 2.88 L Hgb 8.6 L Hct 25.8 L MCV 89.5 MCH 29.9 MCHC 33.4 RDW 13.6 Plt Count 165 D MPV 8.0 Absolute Neuts (auto) Neutrophils % Lymphocytes % Monocytes % Eosinophils % Basophils % Nucleated RBC % Sodium Potassium Chloride Carbon Dioxide Anion Gap BUN Creatinine Creat Clearance w eGFR Random Glucose Calcium Phosphorus Magnesium Total Bilirubin AST ALT Alkaline Phosphatase Total Protein Albumin Active Medications Generic Name Dose Route Start Last Admin Trade Name Freq PRN Reason Stop Dose Admin Acetaminophen 650 mg 03/21/18 18:46 Tylenol - PO Q6HPO [facility] Gabapentin 300 mg 03/20/18 22:00 03/21/18 09:32 Neurontin - PO 300 mg BID ZAIDA Administration Montelukast Sodium 10 mg 03/20/18 22:00 03/20/18 21:01 Singulair - PO Not Given HS [facility] Oxycodone HCl 10 mg 03/20/18 22:00 03/21/18 09:32 Oxycontin - PO 10 mg BID [facility]AIDA Administration Oxycodone HCl 5 mg 03/19/18 15:16 03/20/18 12:37 Roxicodone - PO 5 mg Q3H PRN Administration PAIN LEVEL 1-5 Oxycodone HCl 15 mg 03/21/18 09:15 Roxicodone - PO Q3H PRN PAIN LEVEL 6-10 Tiotropium [place] 2 puff 03/21/18 10:00 03/21/18 09:37 Spiriva Respimat IH Not Given DAILY [facility] ASSESSMENT/PLAN: 68 y/o male with PMH of asthma, CHF, HTN, is s/p L1-S1 laminectomies, L2-S1 PLIF , L1-S1 PISF now POD #2 POD #2: patient still having pain with decreased urine output -oxycodone PRN for pain control -incentive spirometry -montior H/H most recent is 8.6 -physical therapy -monitor urine output -monitor hemodynamics given blood loss and hypotension Asthma: -continue with spiriva and singulair DVT prophylaxis: SCD's F/E/N LR @125mls/hr replete electrolytes when necessary liquids dispo: can transfer to med-surg Problem List - Problems (1) Status post lumbar surgery Code(s): Z98.890 - OTHER SPECIFIED POSTPROCEDURAL STATES Visit type - Emergency Visit Emergency Visit: Yes ED Registration Date: 03/19/18 Care time: The patient presented to the Emergency Department on the above date and was hospitalized for further evaluation of their emergent condition. - New Patient This patient is new to me today: No - Critical Care Critical Care patient: Yes Total Critical Care Time (in minutes): 35 Critical Care Statement: The care of this patient involved high complexity decision making to prevent further life threatening deterioration of the patient 's condition and/or to evaluate & treat vital organ system(s) failure or risk of failure.
[2018-03-21 14:50] VITALS: BMI 32.3
--- NOTE | 2018-03-21 16:37 | PATH ---
Surgical Pathology Report Patient Name: MASHA GROSS Med. Rec. #: [id number] /Age/Gender: 1950 (Age: 68) / M Account: [id number] Location: [facility] QUALITATIVE FIELD COORDINATOR Taken: 03/19/2018 Received: 03/20/2018 Reported: 03/21/2018 Physicians: Claudio Durhma M.D. Specimen(s) Received DISC L2-S1 Clinical History Spinal stenosis lumbar Final Diagnosis DISC L2-S1, EXCISION: CARTILAGE WITH DEGENERATIVE CHANGES. SCANT BONE WITH NO PATHOLOGIC FINDINGS. Electronically Signed Kristel Walsh M.D. Gross Description Received in formalin labeled "disc L2-S1," is a 4.5 x 3.8 x 0.4 cm aggregate of bailey fragments of fibrocartilaginous tissue. A loss prevention representative portion is submitted in one cassette. 03/20/2018 [place]03/20/2018
--- NOTE | 2018-03-21 16:43 | PN ---
Teaching Attending Note Name of Resident: Claudio Nolasco ATTENDING PHYSICIAN STATEMENT I saw and evaluated the patient. I reviewed the resident's note and discussed the case with the resident. I agree with the resident's findings and plan as documented. SUBJECTIVE:states pain is improved now that hes taking pain medications. resistant to taking meds due to fear of becoming addicted. denies CP, SOB, fever , chills, N/V/C/D OBJECTIVE: Last Vital Signs Temp Pulse Resp BP Pulse Ox 98.6 F 117 H 20 153/73 95 03/21/18 13:18 03/21/18 13:18 03/21/18 13:18 03/21/18 13:18 03/21/18 09:00 General NAD CV S1 S2 RRR no murmur/rub/gallop Lungs CTA anteriorly ASSESSMENT AND PLAN: 68yo M with PMH HTN. CHF and ashthma and lumbar stenosis 1. Lumbar stenosis- s/p multilevel laminectomies and fusions 03/19. tolerated surgery well. significant blood loss during surgery with cell saver and hemovac placed. further recommendations per ortho. pain control, incentive spirometer 2. Acute blood loss anemia- due to surgery. 2400cc EBV, 1,175 cell saver with hemovac in place. hgb slowly trending down. will repeat CBC later today to ensure stabilizing. denies dyspnea or symptoms. will not transfuse at this time. 3. tachycardia-likely due to pain. check EKG. pain control 4. hypomagnesemia- Mg po 5. Hypophosphatemia- neutraphos 6. hypocalcemia- corrected Ca 8.3. start MVI 7. hypotnesion- likely medication induced. now stable. cont to hold oral antihypertensives. re-start as needed 8. asthma- cont inhlaers 9. DVT ppx- SCD. would hold pharmacologic anticoagulation in setting of recent surgery 10. MICU. stable for transfer to floors 11. ambulated 12 ft with PT. may require MED on discharge. The care of this patient involved high complexity decision making to prevent further life threatening deterioration of the patient's condition and/or to evaluate & treat vital organ system(s) failure or risk of failure. 35 mins
--- NOTE | 2018-03-21 16:48 | PN ---
Physical Exam: SUBJECTIVE: Patient seen and examined. Pt. was tachy to 130s overnight 2x. Pt. refusing SCDs and Singulair. Pt. refusing pain medications initially but was in severe back discomfort so began to accept pain medications. Pt. yesterday evening became tachycardic, diaphoreptic with a MAP of 60, Pt. was bolused 250ml fluids with good response. Pt. was found not to be urinating and was straight cathed finding 350ml of retained urine. Schumacher was placed. Pt. is concerned about opioid dependence. OBJECTIVE: Vital Signs Period Temp Pulse Resp BP Sys/Avalos Pulse Ox Last 24 Hr 98.4 F-99.0 F 94-122 20-23 85-153/49-84 94-95 GENERAL: The patient is awake, alert, and fully oriented, in no acute distress. LUNGS: Breath sounds equal, clear to auscultation bilaterally, no wheezes, no crackles, no accessory muscle use. HEART: Regular rate and rhythm, S1, S2 without murmur ABDOMEN: firm, nontender, distended, normoactive bowel sounds, tympanic to percussion, no guarding, no rebound, no hepatosplenomegaly, no masses. EXTREMITIES: 2+ pulses, warm, well-perfused, no edema, no calf tenderness NEUROLOGICAL: Normal speech, gait not observed. PSYCH: Normal mood, normal affect. SKIN: Warm, dry, normal turgor Laboratory Results - last 24 hr 03/20/18 03/21/18 03/21/18 16:45 05:30 05:30 WBC 10.0 8.4 RBC 2.93 L 2.77 L Hgb 8.9 L 8.2 L Hct 26.2 L D 24.7 L MCV 89.4 89.1 MCH 30.3 29.7 MCHC 33.8 33.3 RDW 14.1 13.5 Plt Count 158 137 MPV 8.5 8.7 Absolute Neuts (auto) 7.6 Neutrophils % 76.1 Lymphocytes % 9.4 Monocytes % 14.4 H Eosinophils % 0.0 Basophils % 0.1 Nucleated RBC % 0 Sodium 140 Potassium 3.6 Chloride 103 Carbon Dioxide 28 Anion Gap 9 BUN 11 Creatinine 0.4 L Creat Clearance w eGFR > 60 Random Glucose 108 H D Calcium 7.4 L Phosphorus 2.3 L Magnesium 1.5 L Total Bilirubin 0.5 AST 79 H ALT 49 Alkaline Phosphatase 36 L Total Protein 4.9 L Albumin 2.8 L 03/21/18 11:21 WBC 8.2 RBC 2.88 L Hgb 8.6 L Hct 25.8 L MCV 89.5 MCH 29.9 MCHC 33.4 RDW 13.6 Plt Count 165 D MPV 8.0 Absolute Neuts (auto) Neutrophils % Lymphocytes % Monocytes % Eosinophils % Basophils % Nucleated RBC % Sodium Potassium Chloride Carbon Dioxide Anion Gap BUN Creatinine Creat Clearance w eGFR Random Glucose Calcium Phosphorus Magnesium Total Bilirubin AST ALT Alkaline Phosphatase Total Protein Albumin Active Medications Current Medications Acetaminophen (Tylenol -) 650 mg PO Q6HPO [facility] Gabapentin (Neurontin -) 300 mg PO BID [facility] Last Admin: 03/21/18 09:32 Dose: 300 mg Montelukast Sodium (Singulair -) 10 mg PO HS [facility] Last Admin: 03/20/18 21:01 Dose: Not Given Oxycodone HCl (Oxycontin -) 10 mg PO BID [facility] Last Admin: 03/21/18 09:32 Dose: 10 mg Oxycodone HCl (Roxicodone -) 5 mg PO Q3H PRN PRN Reason: PAIN LEVEL 1-5 Last Admin: 03/21/18 14:48 Dose: 5 mg Oxycodone HCl (Roxicodone -) 15 mg PO Q3H PRN PRN Reason: PAIN LEVEL 6-10 Tiotropium [place] (Spiriva Respimat) 2 puff IH DAILY [facility] Last Admin: 03/21/18 09:37 Dose: Not Given ASSESSMENT/PLAN: 68 yo male in the ICU s/p L1-S1 PLIF POD #2 1. Lumbar-Spine stenosis s/p L1-S1 PLIF POD #1 (03/19) - Pain controled via Acetaminophen 650 mg PO Q6H PRN and 1,000 mg IVPB Q8H, Patient says he does not want to use anything stronger - Has passed flatus, Diet advanced to Clear liquids- has difficulty passing gas (03/21/18) - Schumacher present draining clear yellow urine, Can D/C once able to ambulate with PT/OT - OOB as tolerated, f/u PT results. - Incentive Spirometry - Will follow Ortho rec's 2. Acute blood loss anemia - Loss of approx. 2400cc's blood due to surgery - Hemovac drain currently in place - Monitor H&H for transfusion - No immediate indication for transfusion - Hemoglobin trending up 8.2-->8.6 (03/21/18) - F/U EKG(03/21/18)- done because Pt. is tachycardic and to r/o cardiac etiology - F/U Echo(03/21/18) 3. Asthma - Continue Spiriva 2 puff IH DAILY [facility] - Continue Singulair 10 mg PO HS [facility] 4. Prophylaxis - DVT: SCDs 5. FEN - Lactated Ringers @ 120 mls/hr IV - Lytes wnl - Clear Liquid Diet Dispo: Transfer to Med/surg Visit type - Emergency Visit Emergency Visit: No - New Patient This patient is new to me today: Yes Date on this admission: 03/21/18 - Critical Care Critical Care patient: No - Discharge Referral Referred to [facility] Med P.C.: No
[2018-03-21] MEDS ORDERED: BISACODYL 10 MG SUPP.RECT PR PRN (19:00)
[2018-03-21] MEDS: ACETAMINOPHEN 325 MG TABLET (FP) PO SCH (19:15)
--- NOTE | 2018-03-21 20:12 | EKG ---
Test Reason : Blood Pressure : / mmHG Vent. Rate : 101 BPM Atrial Rate : 101 BPM P-R Int : 174 ms QRS Dur : 102 ms QT Int : 342 ms P-R-T Axes : 049 023 031 degrees QTc Int : 443 ms SINUS TACHYCARDIA OTHERWISE NORMAL ECG NO PREVIOUS ECGS AVAILABLE Confirmed by IVANA JONES MD ([id number]) on 03/21/2018 8:12:26 PM Referred By: JOSE NO Confirmed By:IVANA JONES MD
[2018-03-21] MEDS: MONTELUKAST NA 10 MG TABLET PO SCH (21:40)
[2018-03-21] MEDS ORDERED: SENNOSIDES 8.6MG TABLET (FP) PO SCH (22:00)
[2018-03-22] MEDS: oxyCODONE HCL 5 MG TABLET PO PRN ×2 (05:03→19:25)
[2018-03-22] MEDS: ACETAMINOPHEN 325 MG TABLET (FP) PO SCH ×4 (05:04→17:23)
[2018-03-22] MEDS ORDERED: oxyCODONE HCL 5 MG TABLET PO PRN (06:40)
[2018-03-22 06:46] LABS: HEMATOCRIT 23.6 % (35.4-49); MCH 30.2 pg (25.7-33.7); MCHC 33.9 g/dl (32.0-35.9); MEAN CELL VOLUME 89.2 fl (80-96); PLATELET COUNT 172 K/MM3 (134-434); RBC 2.64 M/mm3 (4.00-5.60); RDW 13.3 % (11.9-15.9); WHITE BLOOD COUNT 7.9 K/mm3 (4.0-10.0)
[2018-03-22 07:25] LABS: CHLORIDE 100 mmol/L (98-107); POTASSIUM 3.9 mmol/L (3.5-5.1); SODIUM 139 mmol/L (136-145)
[2018-03-22 07:31] LABS: ALBUMIN 2.7 g/dl (3.4-5.0); ALK PHOS 37 U/L (45-117); ANION GAP 11 MMOL/L (8-16); BILIRUBIN,TOTAL 0.6 mg/dL (0.2-1.0); BLOOD UREA NITROGEN 6 mg/dL (7-18); CALCIUM 7.7 mg/dL (8.5-10.1); CO2 28 mmol/L (21-32); CREATININE 0.4 mg/dL (0.7-1.3); GLUCOSE,RANDOM 87 mg/dL (74-106); MAGNESIUM 1.9 mg/dL (1.8-2.4); SGOT/AST 62 U/L (15-37); SGPT/ALT 39 U/L (12-78); TOT PROT 5.2 g/dl (6.4-8.2)
[2018-03-22] MEDS ORDERED: SENNOSIDES 8.6MG TABLET (FP) PO SCH ×2 (07:58→22:00)
[2018-03-22] MEDS ORDERED: BISACODYL 10 MG SUPP.RECT RC PRN (07:58)
[2018-03-22] MEDS: POLYETHYLENE GLYCOL 3350 119 GM BTL PO SCH (09:31)
[2018-03-22] MEDS: oxyCODONE HCL 10 MG SUSTAINED ACTING TABLET PO SCH ×2 (09:31→22:09)
[2018-03-22] MEDS: GABAPENTIN 300 MG CAPSULE (FP) PO SCH ×2 (09:31→22:09)
[2018-03-22] MEDS ORDERED: NAPH,MB-DB/K PH,MBDB POWDER PACKET PO ONE ×2 (12:30→16:13)
--- NOTE | 2018-03-22 13:02 | PN ---
Physical Exam: SUBJECTIVE: Patient seen and examined. Pt. had ducolax suppository placed too good effect. Pt. had large flatulence and has had a bowel movement. Pt is able to tolerate fluids . Denies N/V/D/F/C, CP or SOB. Pt. was tachy to 150s briefly overnight on telemetry. Pt. received pain medication to good effect. OBJECTIVE: Vital Signs Period Temp Pulse Resp BP Sys/Avalos Pulse Ox Last 24 Hr 97.6 F-98.6 F 100-117 14-20 100-153/66-88 93 GENERAL: The patient is awake, alert, and fully oriented, in no acute distress. LUNGS: Breath sounds equal, clear to auscultation bilaterally, no wheezes, no crackles, no accessory muscle use. HEART: Regular rate and rhythm, S1, S2 without murmur ABDOMEN: Soft, nontender, nondistended, normoactive bowel sounds, no guarding, tympanic, no rebound EXTREMITIES: warm, well-perfused, no edema, motor and sensation grossly in tact. PSYCH: Normal mood, normal affect SKIN: Warm, dry, normal turgor Laboratory Results - last 24 hr 03/22/18 03/22/18 05:30 05:30 WBC 7.9 RBC 2.64 L Hgb 8.0 L Hct 23.6 L MCV 89.2 MCH 30.2 MCHC 33.9 RDW 13.3 Plt Count 172 MPV 8.0 Sodium 139 Potassium 3.9 Chloride 100 Carbon Dioxide 28 Anion Gap 11 BUN 6 L Creatinine 0.4 L Creat Clearance w eGFR > 60 Random Glucose 87 Calcium 7.7 L Phosphorus 2.0 L Magnesium 1.9 D Total Bilirubin 0.6 AST 62 H D ALT 39 D Alkaline Phosphatase 37 L Total Protein 5.2 L Albumin 2.7 L Active Medications Current Medications Acetaminophen (Tylenol -) 650 mg PO Q6HPO [facility] Last Admin: 03/22/18 12:36 Dose: 650 mg Bisacodyl (Dulcolax Suppository -) 10 mg RC DAILY PRN PRN Reason: CONSTIPATION Gabapentin (Neurontin -) 300 mg PO BID [facility] Last Admin: 03/22/18 09:31 Dose: 300 mg Oxycodone HCl (Roxicodone -) 5 mg PO Q3H PRN PRN Reason: PAIN LEVEL 1-5 Oxycodone HCl (Roxicodone -) 15 mg PO Q3H PRN PRN Reason: PAIN LEVEL 6-10 Oxycodone HCl (Oxycontin -) 10 mg PO BID [facility] Last Admin: 03/22/18 09:31 Dose: 10 mg Polyethylene Glycol (Miralax (For Daily Use) -) 17 gm PO DAILY [facility] Last Admin: 03/22/18 09:31 Dose: Not Given Senna (Senna -) 2 tab PO HS [facility] ASSESSMENT/PLAN: 68 yo male in the ICU s/p L1-S1 PLIF POD #2 1. Lumbar-Spine stenosis s/p L1-S1 PLIF POD #1 (03/19) - Pain controled via Acetaminophen 650 mg PO Q6H PRN and 1,000 mg IVPB Q8H, Patient says he does not want to use anything stronger - Has passed flatus, Diet advanced to Clear liquids- had difficulty passing gas (03/21/18) - Schumacher D/C - OOB as tolerated, f/u PT results. - Incentive Spirometry - Will follow Ortho rec's 2. Acute blood loss anemia - Loss of approx. 2400cc's blood due to surgery - Hemovac drain removed - Monitor H&H for transfusion - No immediate indication for transfusion - Hemoglobin trending up 8.2-->8.6-->8.0 (03/22/18) - EKG(03/21/18)- showed NSR; done because Pt. was tachycardic and to r/o cardiac etiology - Echo not performed, not indicated 3. Asthma - Continue Spiriva 2 puff IH DAILY [facility] - Continue Singulair 10 mg PO [facility] 4. Prophylaxis - DVT: SCDs 5. FEN - repleted w/ 2 Phos NA-K packet - Clear Liquid Diet - f/u phosphorous and CBC Dispo: Discharge to SNF Visit type - Emergency Visit Emergency Visit: Yes ED Registration Date: 03/19/18 Care time: The patient presented to the Emergency Department on the above date and was hospitalized for further evaluation of their emergent condition. - New Patient This patient is new to me today: No - Critical Care Critical Care patient: No - Discharge Referral Referred to [facility] Med P.C.: No
--- NOTE | 2018-03-22 14:11 | PN ---
Teaching Attending Note Name of Resident: Claudio Nolasco ATTENDING PHYSICIAN STATEMENT I saw and evaluated the patient. I reviewed the resident's note and discussed the case with the resident. I agree with the resident's findings and plan as documented. SUBJECTIVE:continues to have pain worse on movement but states controlled with pain regimen. denies Cp, SOB, fever, chills, N/V/C/D. had BM today OBJECTIVE: Last Vital Signs Temp Pulse Resp BP Pulse Ox 98.5 F 102 H 20 100/72 93 L 03/22/18 07:00 03/22/18 07:00 03/22/18 07:00 03/22/18 07:00 03/21/18 20:53 General NAD CV S1 S2 RRR no murmur/rub/gallop Lungs CTA anteriorly back dressing has dried blood. ASSESSMENT AND PLAN: 68yo M with PMH HTN. CHF and ashthma and lumbar stenosis 1. Lumbar stenosis- s/p multilevel laminectomies and fusions 03/19. tolerated surgery well. further recommendations per ortho. pain control, incentive spirometer 2. Acute blood loss anemia- due to surgery. 2400cc EBV, 1,175 cell saver. hemovac now removed. hgb stabilizing. no indication for transfusion at this itme. 3. tachycardia-likely due to pain. EKG showing sinus tach. overall improved. 4. hypomagnesemia- resolved 5. Hypophosphatemia- neutraphos 6. hypocalcemia- corrected Ca 8.3. start MVI 7. hypotension- likely medication induced. now stable. cont to hold oral antihypertensives. re-start as needed 8. asthma- cont inhlaers 9. DVT ppx- SCD. would hold pharmacologic anticoagulation in setting of recent surgery 10. medically optimized for discharge. agreeable to MED. requesting [facility]
[2018-03-23] MEDS: oxyCODONE HCL 5 MG TABLET PO PRN ×2 (04:23→14:21)
[2018-03-23] MEDS: ACETAMINOPHEN 325 MG TABLET (FP) PO SCH ×3 (06:42→13:14)
[2018-03-23 08:33] LABS: HEMATOCRIT 24.5 % (35.4-49); HEMOGLOBIN 8.3 GM/dL (11.7-16.9); MCH 29.7 pg (25.7-33.7); MCHC 33.7 g/dl (32.0-35.9); MEAN CELL VOLUME 88.3 fl (80-96); MEAN PLT VOLUME 7.7 fl (7.5-11.1); PLATELET COUNT 259 K/MM3 (134-434); RBC 2.78 M/mm3 (4.00-5.60); WHITE BLOOD COUNT 7.5 K/mm3 (4.0-10.0)
[2018-03-23] MEDS: oxyCODONE HCL 10 MG SUSTAINED ACTING TABLET PO SCH (09:48)
[2018-03-23] MEDS: GABAPENTIN 300 MG CAPSULE (FP) PO SCH (09:48)
[2018-03-23] MEDS: POLYETHYLENE GLYCOL 3350 119 GM BTL PO SCH (09:49)
[2018-03-23] MEDS ORDERED: VALSARTAN 80 MG TABLET (UD) PO SCH (10:00)
[2018-03-23] MEDS ORDERED: HYDROCHLOROTHIAZIDE 12.5 MG CAPSULE (FP) PO SCH (10:00)
--- NOTE | 2018-03-23 11:51 | DS ---
Physical Exam: SUBJECTIVE: Patient seen and examined this morning at bedside. Continues to have BM's, tolerating diet well. Denies fevers, chills, chest pain, SOB, nausea, vomiting, diarrhea, constipation. OBJECTIVE: Vital Signs Period Temp Pulse Resp BP Sys/Avalos Pulse Ox Last 24 Hr 98.4 F-98.6 F 105-111 20-20 141-153/76-90 95 PHYSICAL EXAM GENERAL: The patient is awake, alert, and fully oriented, in no acute distress. EYES: PERRL, EOMI THROAT: Oropharynx clear without exudates, moist mucous membranes. NECK: Supple, No JVD. LUNGS: Breath sounds equal, clear to auscultation bilaterally, no wheezes HEART: Regular rate and rhythm, S1, S2 without murmur. ABDOMEN: Soft, nontender, nondistended, normoactive bowel sounds BACK: Surgical dressings intact without surrounding erythema, tenderness or swelling. EXTREMITIES: 2+ pulses, no edema. L4-S1 sensation grossly intact. LE Muscle strength 5/5 b/l SKIN: Warm, dry, no rashes or lesions noted LABS Laboratory Results - last 24 hr 03/23/18 03/23/18 07:30 07:30 WBC 7.5 RBC 2.78 L Hgb 8.3 L Hct 24.5 L MCV 88.3 MCH 29.7 MCHC 33.7 RDW 13.0 Plt Count 259 D MPV 7.7 Phosphorus 2.6 D IMAGING: - EKG: SINUS TACHYCARDIA, OTHERWISE NORMAL ECG, NO PREVIOUS ECGS AVAILABLE HOSPITAL COURSE: Date of Admission:03/19/18 Date of Discharge: 03/23/18 Patient was admitted to the ICU for Lumbar spinal stenosis s/p L1-S1 PLIF. Patient had an estimated blood loss of 2400 cc which did not require blood transfusion. He received 2 doses of Abx perioperatively and his pain was controlled by Oxycodone. Patient passed Flatus and is diet was advanced and tolerated well. Patient was able to ambulate with PT and his thompson was discontinued; He passed voiding trial. Patient became hypotensive for which he was bolused 1L NS. He experienced mild persistent tachycardia for which an EKG was done (noted above). His hypomagnesemia, Hypophosphatemia, and hypocalcemia all resolved. He was discharged to [place] for acute rehab with discharge instructions including limitations of activity and to follow up with Dr. Durham Outpatient. Minutes to complete discharge: 45 Discharge Summary Reason For Visit: SPINAL STENOSIS LUMBAR Current Active Problems Lumbar spinal stenosis (Acute) Postoperative anemia due to acute blood loss (Acute) Status post lumbar surgery (Acute) HTN (hypertension) (Chronic) Condition: Stable - Instructions Diet, Activity, Other Instructions: You were admitted for a PLIF spinal fusion procedure. You are being discharged to a rehab facility to help strengthen your muscles. Avoid lifting any object heavier than 5 pounds. No bending or twisting for 6 months as this may aggravate your back. Please Ambulate with assistance as needed. You can take Tylenol 650mg every 6 hours as needed for pain. Please do not use NSAIDs as these interfere with bone healing. You are being sent to [facility] on the same pain regimen here, Take as needed. these medications can cause constipation so make sure you are having regular bowel movements while taking. Follow up with your primary care doctor in 1 week. If you do not have one, please follow up with the residents at the [facility]. The information is attached to this packet. Follow-up with Dr. Durham at [facility] [place] office. Please call [phone] for an appointment. Please return to the ER if you experience constipation for more than 3 days, shortness of breath, chest pain, severe/persistent or worsening symptoms, bladder or bowel dysfunction or increased pain that is not resolved with your pain medications. Referrals: Gabriel Traore MD [Staff Physician] - 2 Weeks David Durham MD [Staff Physician] - 1 Week Kika Rey RES [Resident] - 2 Weeks Disposition: SNF FACILITY - Home Medications Comprehensive Discharge Medication List: Ambulatory Orders Atorvastatin Ca [Lipitor] 10 mg PO ASDIR 03/16/18 Montelukast Sodium [Singulair] 10 mg PO HS PRN 03/16/18 Telmisartan/Hydrochlorothiazid [Micardis Hct 80-12.5 mg Tablet] 1 tab PO DAILY 03/16/18 Acetaminophen [Tylenol .Regular Strength -] 650 mg PO Q6HPO tablet 03/23/18 Budesonide/Formeterol Fumarate [SYMBICORT 160/4.5mcg -] 2 inh PO BID 03/23/18 Gabapentin [Neurontin -] 300 mg PO BID capsule 03/23/18 Polyethylene Glycol 3350 [Miralax 119 gm Btl -] 17 gm PO DAILY bottle 03/23/18 Sennosides [Senna -] 2 tab PO HS tablet 03/23/18 oxyCODONE HCL [Roxicodone -] 5 mg PO Q3H PRN tablet MDD 40 03/23/18 oxyCODONE HCL [Roxicodone -] 15 mg PO Q3H PRN tablet MDD 120 03/23/18 oxyCODONE SR [Oxycontin] 10 mg PO BID tab.er.12h MDD 20 03/23/18 This patient is new to me today: No Emergency Visit: No Critical Care patient: No - Discharge Referral Referred to [facility] No
--- NOTE | 2018-03-23 11:57 | PN ---
Teaching Attending Note Name of Resident: Kika Rey ATTENDING PHYSICIAN STATEMENT I saw and evaluated the patient. I reviewed the resident's note and discussed the case with the resident. I agree with the resident's findings and plan as documented. SUBJECTIVE:pain controlled with pain regimen. 1 hard BM today. denies Cp, SOB, fever, chills, N/V/C/D OBJECTIVE: Last Vital Signs Temp Pulse Resp BP Pulse Ox 98.4 F 111 H 20 150/90 95 03/23/18 05:43 03/23/18 05:43 03/23/18 05:43 03/23/18 05:43 03/22/18 21:00 General NAD CV S1 S2 RRR no murmur/rub/gallop Lungs CTA anteriorly ASSESSMENT AND PLAN: 68yo M with PMH HTN. CHF and ashthma and lumbar stenosis 1. Lumbar stenosis- s/p multilevel laminectomies and fusions 03/19. tolerated surgery well. further recommendations per ortho. pain control, incentive spirometer 2. Acute blood loss anemia- due to surgery. 2400cc EBV, 1,175 cell saver. hemovac now removed. hgb stabilizing. no indication for transfusion at this time. should have repeat cbc in 1 week with iron studies. 3. tachycardia-likely due to pain. EKG showing sinus tach. overall improved. 4. hypomagnesemia- resolved 5. Hypophosphatemia- resolved 6. hypocalcemia- corrected Ca 8.3. start MVI 7. hypotension- likely medication induced. now elevated. will re-start home medications 8. asthma- cont inhlaers 9. DVT ppx- SCD. would hold pharmacologic anticoagulation in setting of recent surgery 10. accepted to [place]. will transfer for acute rehab
[2018-03-23 12:32] VITALS: BP 151/82; PULSE 99
[2018-03-23 15:31] VITALS: TEMP 98.6
== END 2018-03-23 16:21 | DRG 454 ==
LOC: JSAMEDAYSX 08:27 → EDSTATUS 14:00 → JICU 17:33 → J6S 03-22 06:49
PROVIDERS: ADMIT Orthopaedic Surgery Orthopaedic Surgery of the Spine; ATTEND Internal Medicine
PROC: 0SG1071 Fusion of 2 or more Lumbar Vertebral Joints with Autologous Tissue Substitute, Posterior Approach, Posterior Column, Open Approach (ICD-10-PCS; 2018-03-19)
PROC: 0SG30AJ Fusion of Lumbosacral Joint with Interbody Fusion Device, Posterior Approach, Anterior Column, Open Approach (ICD-10-PCS; 2018-03-19)
PROC: 0SG3071 Fusion of Lumbosacral Joint with Autologous Tissue Substitute, Posterior Approach, Posterior Column, Open Approach (ICD-10-PCS; 2018-03-19)
PROC: 0SG10AJ Fusion of 2 or more Lumbar Vertebral Joints with Interbody Fusion Device, Posterior Approach, Anterior Column, Open Approach (ICD-10-PCS; principal; 2018-03-19 11:00)
DX: M48.061 Spinal stenosis, lumbar region without neurogenic claudication (principal); D62 Acute posthemorrhagic anemia; I50.9 Heart failure, unspecified; I10 Essential (primary) hypertension; J45.909 Unspecified asthma, uncomplicated; E83.42 Hypomagnesemia; E83.51 Hypocalcemia; T88.7XXA Unspecified adverse effect of drug or medicament, initial encounter; I95.9 Hypotension, unspecified; R00.0 Tachycardia, unspecified; E78.5 Hyperlipidemia, unspecified
CPT/HCPCS: 36415; 76000-TC-FY; 80048; 80053; 83735; 84100; 85025; 85027; 86850; 86900; 86901; 88304-TC; 93005; 93010; 94760; 97116-GP; 97162-GP; J0131; J1644

== ENCOUNTER 2019-03-01 07:55 | Day surgery (SDC) | payer OTHER, BC | END 2019-03-01 14:18 | disposition home or self-care (01) | LOC: FASU 07:55 ==

== ENCOUNTER 2021-07-07 07:03 | Inpatient (IN) | payer OTHER ==
[2021-07-06 09:18] VITALS: BMI 27.7
[2021-07-07] MEDS ORDERED: BENZOIN/ALOE VERA/STORAX/TOLU 30 ML TINCTURE ONE (09:09)
[2021-07-07] MEDS ORDERED: MIDAZOLAM HCL 2 MG/2 ML SINGLE DOSE VIAL ONE ×3 (09:09→11:27)
[2021-07-07] MEDS ORDERED: BUPIVACAINE LIPOSOME/PF (EXPAREL) 266 MG/20 ML VIAL ONE (09:10)
[2021-07-07] MEDS ORDERED: BUPIVACAINE HCL/PF 0.5% (5MG/ML) 10 ML VIAL ONE ×2 (09:10→09:32)
[2021-07-07] MEDS ORDERED: SODIUM CHLORIDE 0.9% P/F 10 ML VIAL IJ ONE (09:10)
[2021-07-07] MEDS ORDERED: PROPOFOL 20 ML ONE (09:55)
[2021-07-07] MEDS ORDERED: TRANEXAMIC ACID 1000 MG/10 ML VIAL ONE ×2 (09:56→13:15)
[2021-07-07] MEDS ORDERED: SUCCINYLCHOLINE CHLORIDE 200 MG/10 ML SYRINGE ONE (09:56)
[2021-07-07] MEDS ORDERED: DEXAMETHASONE SOD PHOSPHATE 4 MG/1 ML VIAL ONE (10:10)
[2021-07-07] MEDS ORDERED: ONDANSETRON 4 MG/2 ML VIAL ONE (10:10)
[2021-07-07] MEDS ORDERED: ceFAZolin SODIUM 1 GM VIAL ONE ×3 (10:11→18:52)
[2021-07-07] MEDS ORDERED: VANCOMYCIN 1,000 MG VIAL (RESTRICTED TO ID ONLY) ONE (10:26)
[2021-07-07] MEDS ORDERED: ONDANSETRON 4 MG/2 ML VIAL IVPUSH PRN (14:00)
[2021-07-07] MEDS ORDERED: LACTATED RINGERS SOLUTION 1,000 ML IV SCH ×2 (14:00→15:30)
[2021-07-07] MEDS ORDERED: ACETAMINOPHEN 1000 MG/100 ML VIAL IVPB ONE (14:01)
[2021-07-07] MEDS ORDERED: oxyCODONE HCL 5 MG TABLET PO PRN (14:01)
[2021-07-07] MEDS: KETOROLAC TROMETHAMINE 30 MG/1 ML VIAL IVPUSH SCH ×2 (14:23→20:01)
[2021-07-07] MEDS: oxyCODONE HCL 10 MG SUSTAINED ACTING TABLET PO SCH ×2 (15:00→21:07)
[2021-07-07] MEDS ORDERED: MAG HYDROX/AL HYDROX/SIMETH 30 ML UNIT-DOSE CUP PO PRN (15:23)
[2021-07-07] MEDS ORDERED: MAGNESIUM HYDROX 2400MG/30ML ORAL SUSPENSION 30 ML CUP PO PRN (15:23)
[2021-07-07] MEDS ORDERED: DEXTROSE 5%-WATER 100 ML IVPB ONE (18:52)
[2021-07-07] MEDS: oxyCODONE HCL 5 MG TABLET PO PRN (18:56)
[2021-07-07] MEDS: CEFAZOLIN 2 GM in DEXTROSE 5%-WATER 100 ML IVPB SCH (18:58)
[2021-07-07] MEDS: ACETAMINOPHEN 500 MG TABLET (FP) PO SCH (21:05)
[2021-07-07] MEDS: ASPIRIN COATED 81 MG TABLET.EC PO SCH (21:06)
[2021-07-07] MEDS: PRIMIDONE 50 MG TABLET PO SCH (21:06)
[2021-07-07] MEDS: ATORVASTATIN CA 10 MG TABLET (FP) PO SCH (21:06)
[2021-07-07] MEDS: SENNOSIDES/DOCUSATE COMBO (SENNA PLUS) TABLET (UD) PO SCH (21:06)
[2021-07-07] MEDS ORDERED: HYDROmorphone HCl 2 MG/ML VIAL IVPB ONE (22:35)
[2021-07-08] MEDS: CEFAZOLIN 2 GM in DEXTROSE 5%-WATER 100 ML IVPB SCH ×2 (01:26→06:04)
[2021-07-08] MEDS: ACETAMINOPHEN 500 MG TABLET (FP) PO SCH ×4 (04:03→21:07)
[2021-07-08] MEDS: PRIMIDONE 50 MG TABLET PO SCH ×3 (06:03→22:15)
[2021-07-08] MEDS: ONDANSETRON 4 MG/2 ML VIAL IVPUSH PRN ×3 (06:08→19:55)
[2021-07-08] MEDS: oxyCODONE HCL 5 MG TABLET PO PRN (06:08)
[2021-07-08] MEDS ORDERED: ceFAZolin SODIUM 1 GM VIAL ONE (08:22)
[2021-07-08] MEDS ORDERED: DEXTROSE 5%-WATER 100 ML IVPB ONE (08:23)
[2021-07-08 08:31] LABS: CALCIUM 8.3 mg/dl (8.5-10); CREATININE 0.6 mg/dl (0.55-1.3)
[2021-07-08] MEDS: ASPIRIN COATED 81 MG TABLET.EC PO SCH ×2 (09:46→22:15)
[2021-07-08] MEDS: PANTOPRAZOLE 40 MG TABLET PO SCH (09:46)
[2021-07-08] MEDS: CELECOXIB 200 MG CAPSULE PO SCH (09:46)
[2021-07-08] MEDS: oxyCODONE HCL 10 MG SUSTAINED ACTING TABLET PO SCH ×2 (09:47→21:06)
[2021-07-08] MEDS: LOSARTAN POTASSIUM 50 MG TABLET PO SCH (09:47)
[2021-07-08] MEDS: SENNOSIDES/DOCUSATE COMBO (SENNA PLUS) TABLET (UD) PO SCH ×2 (09:50→22:15)
[2021-07-08 09:54] LABS: HEMATOCRIT 26.6 % (35.4-49); MCH 31.7 pg (25.7-33.7); MCHC 33.8 g/dl (32.0-35.9); MEAN CELL VOLUME 93.7 fl (80-96); MEAN PLT VOLUME 8.1 fl (7.5-11.1); PLATELET COUNT 144 10^3/uL (134-434); RBC 2.84 M/mm3 (4.00-5.60); RDW 12.8 % (11.9-15.9); WHITE BLOOD COUNT 8.1 K/mm3 (4.0-10.0)
[2021-07-08] MEDS ORDERED: PATIENT'S OWN MEDICATION (NON-FORMULARY) (Telmisartan/Hydrochlorothiazid [Micardis Hct 80- PO SCH (10:00)
[2021-07-08] MEDS ORDERED: HYDROCHLOROTHIAZIDE 12.5 MG CAPSULE (FP) PO SCH (10:00)
[2021-07-08 12:57] LABS: CREATININE 0.7 mg/dl (0.55-1.3)
[2021-07-08] MEDS: diphenhydrAMINE HCL 25 MG CAPSULE (FP) PO PRN (21:08)
[2021-07-08] MEDS: ATORVASTATIN CA 10 MG TABLET (FP) PO SCH (22:15)
[2021-07-09] MEDS: oxyCODONE HCL 5 MG TABLET PO PRN (04:45)
[2021-07-09] MEDS: ACETAMINOPHEN 500 MG TABLET (FP) PO SCH ×4 (04:46→20:16)
[2021-07-09] MEDS: PRIMIDONE 50 MG TABLET PO SCH ×3 (06:13→21:40)
[2021-07-09] MEDS ORDERED: ERGOCALCIFEROL (VIT D2) 50,000 UNIT (1.25 MG) CAPSULE PO SCH (10:00)
[2021-07-09] MEDS: LOSARTAN POTASSIUM 50 MG TABLET PO SCH (10:20)
[2021-07-09] MEDS: ASPIRIN COATED 81 MG TABLET.EC PO SCH ×2 (10:20→21:39)
[2021-07-09] MEDS: oxyCODONE HCL 10 MG SUSTAINED ACTING TABLET PO SCH ×2 (10:20→21:40)
[2021-07-09] MEDS: PANTOPRAZOLE 40 MG TABLET PO SCH (10:20)
[2021-07-09] MEDS: CELECOXIB 200 MG CAPSULE PO SCH (10:20)
[2021-07-09] MEDS: SENNOSIDES/DOCUSATE COMBO (SENNA PLUS) TABLET (UD) PO SCH ×3 (10:21→21:52)
[2021-07-09 11:52] LABS: CALCIUM 8.7 mg/dl (8.5-10); CREATININE 0.6 mg/dl (0.55-1.3); MAGNESIUM 1.6 mg/dL (1.8-2.4)
[2021-07-09] MEDS ORDERED: POTASSIUM CHLORIDE TABS 20 MEQ TABLET.ER (FP) PO ONE (12:15)
[2021-07-09] MEDS ORDERED: MAGNESIUM OXIDE 400 MG TABLET (FP) PO ONE (12:15)
[2021-07-09 12:49] LABS: HEMATOCRIT 24.4 % (35.4-49); HEMOGLOBIN 8.3 GM/dL (11.7-16.9); MCH 31.5 pg (25.7-33.7); MCHC 33.8 g/dl (32.0-35.9); MEAN CELL VOLUME 93.2 fl (80-96); MEAN PLT VOLUME 8.3 fl (7.5-11.1); PLATELET COUNT 153 10^3/uL (134-434); RBC 2.62 M/mm3 (4.00-5.60); RDW 12.6 % (11.9-15.9); WHITE BLOOD COUNT 8.4 K/mm3 (4.0-10.0)
[2021-07-09] MEDS: SODIUM CHLORIDE 1 GM TABLET PO SCH ×2 (13:05→21:41)
[2021-07-09 14:40] LABS: ALBUMIN 3.7 g/dl (3.4-5.0); BILIRUBIN,TOTAL 1.2 mg/dl (0.2-1); CALCIUM 8.6 mg/dl (8.5-10); CREATININE 0.6 mg/dl (0.55-1.3); TOT PROT 6.3 g/dl (6.4-8.2)
[2021-07-09] MEDS: diphenhydrAMINE HCL 25 MG CAPSULE (FP) PO PRN (20:16)
[2021-07-09] MEDS: ATORVASTATIN CA 10 MG TABLET (FP) PO SCH (21:39)
[2021-07-10] MEDS: ACETAMINOPHEN 500 MG TABLET (FP) PO SCH ×3 (03:56→16:48)
[2021-07-10] MEDS: oxyCODONE HCL 5 MG TABLET PO PRN (05:53)
[2021-07-10] MEDS: PRIMIDONE 50 MG TABLET PO SCH ×3 (05:54→21:21)
[2021-07-10 08:16] LABS: ALBUMIN 3.1 g/dl (3.4-5.0); BILIRUBIN,TOTAL 0.9 mg/dl (0.2-1); CALCIUM 8.2 mg/dl (8.5-10); CREATININE 0.6 mg/dl (0.55-1.3); MAGNESIUM 1.8 mg/dL (1.8-2.4); TOT PROT 5.6 g/dl (6.4-8.2)
[2021-07-10] MEDS: oxyCODONE HCL 10 MG SUSTAINED ACTING TABLET PO SCH (09:46)
[2021-07-10] MEDS: PANTOPRAZOLE 40 MG TABLET PO SCH (09:47)
[2021-07-10] MEDS: CELECOXIB 200 MG CAPSULE PO SCH (09:47)
[2021-07-10] MEDS: SENNOSIDES/DOCUSATE COMBO (SENNA PLUS) TABLET (UD) PO SCH ×2 (09:47→21:23)
[2021-07-10] MEDS: ASPIRIN COATED 81 MG TABLET.EC PO SCH ×2 (09:47→21:21)
[2021-07-10] MEDS: LOSARTAN POTASSIUM 50 MG TABLET PO SCH (09:48)
[2021-07-10] MEDS: SODIUM CHLORIDE 1 GM TABLET PO SCH (09:48)
[2021-07-10 10:22] LABS: BASO % 0.6 % (0-2.0); EOS % 3.1 % (0-4.5); HEMATOCRIT 21.8 % (35.4-49); HEMOGLOBIN 7.3 GM/dL (11.7-16.9); LYMPH % 15.5 % (8-40); MCH 31.1 pg (25.7-33.7); MCHC 33.4 g/dl (32.0-35.9); MEAN CELL VOLUME 92.9 fl (80-96); MEAN PLT VOLUME 7.8 fl (7.5-11.1); MONO % 11.8 % (3.8-10.2); PLATELET COUNT 135 10^3/uL (134-434); RBC 2.35 M/mm3 (4.00-5.60); RDW 12.7 % (11.9-15.9); WHITE BLOOD COUNT 5.8 K/mm3 (4.0-10.0)
[2021-07-10 15:54] LABS: HEMATOCRIT 23.8 % (35.4-49); HEMOGLOBIN 7.8 GM/dL (11.7-16.9); MCH 30.6 pg (25.7-33.7); MEAN CELL VOLUME 92.7 fl (80-96); MEAN PLT VOLUME 8.4 fl (7.5-11.1); PLATELET COUNT 171 10^3/uL (134-434); RBC 2.56 M/mm3 (4.00-5.60); RDW 12.3 % (11.9-15.9); WHITE BLOOD COUNT 8.6 K/mm3 (4.0-10.0)
[2021-07-10] MEDS: ATORVASTATIN CA 10 MG TABLET (FP) PO SCH (21:21)
[2021-07-10] MEDS: diphenhydrAMINE HCL 25 MG CAPSULE (FP) PO PRN (21:21)
[2021-07-10 22:04] LABS: HEMATOCRIT 20.6 % (35.4-49); MCH 30.6 pg (25.7-33.7); MCHC 33.3 g/dl (32.0-35.9); MEAN CELL VOLUME 92.2 fl (80-96); MEAN PLT VOLUME 7.7 fl (7.5-11.1); PLATELET COUNT 151 10^3/uL (134-434); RBC 2.24 M/mm3 (4.00-5.60); RDW 12.4 % (11.9-15.9); WHITE BLOOD COUNT 7.3 K/mm3 (4.0-10.0)
[2021-07-10 22:06] LABS: HEMOGLOBIN 6.9 GM/dL (11.7-16.9)
[2021-07-11] MEDS ORDERED: ACETAMINOPHEN 1000 MG/100 ML VIAL IVPB PRN (00:03)
[2021-07-11] MEDS: oxyCODONE HCL 5 MG TABLET PO PRN ×3 (00:15→18:05)
[2021-07-11] MEDS: ACETAMINOPHEN 500 MG TABLET (FP) PO SCH (00:16)
[2021-07-11] MEDS ORDERED: PT OWN MED DRAWER 7, Y5N ONE ×2 (05:50→20:17)
[2021-07-11] MEDS: PRIMIDONE 50 MG TABLET PO SCH ×3 (06:15→21:10)
[2021-07-11 09:15] LABS: ALBUMIN 3.1 g/dl (3.4-5.0); BILIRUBIN,TOTAL 1.1 mg/dl (0.2-1); CALCIUM 8.2 mg/dl (8.5-10); CREATININE 0.5 mg/dl (0.55-1.3); MAGNESIUM 1.7 mg/dL (1.8-2.4); TOT PROT 5.6 g/dl (6.4-8.2)
[2021-07-11] MEDS: LOSARTAN POTASSIUM 50 MG TABLET PO SCH (09:35)
[2021-07-11] MEDS: ASPIRIN COATED 81 MG TABLET.EC PO SCH ×2 (09:35→21:09)
[2021-07-11] MEDS: PANTOPRAZOLE 40 MG TABLET PO SCH (09:35)
[2021-07-11] MEDS: CELECOXIB 200 MG CAPSULE PO SCH (09:35)
[2021-07-11] MEDS: SENNOSIDES/DOCUSATE COMBO (SENNA PLUS) TABLET (UD) PO SCH ×2 (09:36→21:13)
[2021-07-11] MEDS ORDERED: MAGNESIUM OXIDE 400 MG TABLET (FP) PO ONE (09:44)
[2021-07-11] MEDS ORDERED: SODIUM CHLORIDE 250 ML IV STA (09:47)
[2021-07-11 09:54] LABS: HEMATOCRIT 21.4 % (35.4-49); HEMOGLOBIN 7.3 GM/dL (11.7-16.9); MCH 31.5 pg (25.7-33.7); MCHC 34.1 g/dl (32.0-35.9); MEAN CELL VOLUME 92.4 fl (80-96); MEAN PLT VOLUME 7.3 fl (7.5-11.1); PLATELET COUNT 170 10^3/uL (134-434); RBC 2.32 M/mm3 (4.00-5.60); RDW 12.1 % (11.9-15.9); WHITE BLOOD COUNT 5.2 K/mm3 (4.0-10.0)
[2021-07-11 15:53] LABS: ACTIVATED PTT 20.4 SECONDS (25.2-36.5)
[2021-07-11 15:57] LABS: INR 1.04 (0.82-1.09); PROTHROMBIN TIME (PATIENT) 11.5 SEC (10.2-13.0)
[2021-07-11 17:31] LABS: BASO % 0.9 % (0-2.0); EOS % 3.1 % (0-4.5); HEMATOCRIT 24.6 % (35.4-49); HEMOGLOBIN 8.2 GM/dL (11.7-16.9); LYMPH % 15.1 % (8-40); MCH 30.7 pg (25.7-33.7); MCHC 33.2 g/dl (32.0-35.9); MEAN CELL VOLUME 92.5 fl (80-96); MEAN PLT VOLUME 7.4 fl (7.5-11.1); MONO % 12.3 % (3.8-10.2); NEUT % 68.6 % (42.8-82.8); PLATELET COUNT 228 10^3/uL (134-434); RBC 2.66 M/mm3 (4.00-5.60); RDW 12.2 % (11.9-15.9); WHITE BLOOD COUNT 6.3 K/mm3 (4.0-10.0)
[2021-07-11] MEDS: ATORVASTATIN CA 10 MG TABLET (FP) PO SCH (21:09)
[2021-07-11] MEDS: FERROUS SO4 325 MG TABLET (FP) PO SCH (21:10)
[2021-07-11] MEDS: DOCUSATE SODIUM 100 MG CAPSULE (FP) PO SCH (21:12)
[2021-07-11] MEDS: diphenhydrAMINE HCL 25 MG CAPSULE (FP) PO PRN (22:24)
[2021-07-12] MEDS: oxyCODONE HCL 5 MG TABLET PO PRN ×3 (01:08→23:02)
[2021-07-12] MEDS: PRIMIDONE 50 MG TABLET PO SCH ×3 (07:15→21:58)
[2021-07-12 08:31] LABS: ALBUMIN 3.3 g/dl (3.4-5.0); CALCIUM 8.3 mg/dl (8.5-10); CREATININE 0.5 mg/dl (0.55-1.3); MAGNESIUM 1.7 mg/dL (1.8-2.4); PHOSPHOROUS 3.1 mg/dl (2.5-4.9); TOT PROT 5.9 g/dl (6.4-8.2)
[2021-07-12] MEDS: SENNOSIDES/DOCUSATE COMBO (SENNA PLUS) TABLET (UD) PO SCH ×2 (09:27→22:46)
[2021-07-12] MEDS: ASPIRIN COATED 81 MG TABLET.EC PO SCH ×2 (09:28→21:58)
[2021-07-12] MEDS: CELECOXIB 200 MG CAPSULE PO SCH (09:28)
[2021-07-12] MEDS: FERROUS SO4 325 MG TABLET (FP) PO SCH ×2 (09:28→21:58)
[2021-07-12] MEDS: DOCUSATE SODIUM 100 MG CAPSULE (FP) PO SCH ×2 (09:30→22:45)
[2021-07-12] MEDS: LOSARTAN POTASSIUM 50 MG TABLET PO SCH (09:30)
[2021-07-12 09:59] LABS: BASO % 0.6 % (0-2.0); EOS % 3.7 % (0-4.5); HEMATOCRIT 23.3 % (35.4-49); HEMOGLOBIN 7.9 GM/dL (11.7-16.9); LYMPH % 19.1 % (8-40); MCH 31.6 pg (25.7-33.7); MEAN CELL VOLUME 92.8 fl (80-96); MEAN PLT VOLUME 7.6 fl (7.5-11.1); MONO % 15.3 % (3.8-10.2); NEUT % 61.3 % (42.8-82.8); PLATELET COUNT 249 10^3/uL (134-434); RBC 2.51 M/mm3 (4.00-5.60); RDW 12.2 % (11.9-15.9); WHITE BLOOD COUNT 4.9 K/mm3 (4.0-10.0)
[2021-07-12] MEDS ORDERED: MAGNESIUM SULF 50% (8.12 MEQ/2 ML-1 GM VIAL) IVPB ONE (10:03)
[2021-07-12] MEDS ORDERED: POTASSIUM CHLORIDE TABS 20 MEQ TABLET.ER (FP) PO ONE (10:15)
[2021-07-12] MEDS ORDERED: MAGNESIUM SULFATE IN WATER 2 GM/50 ML IVPB IVPB ONE (10:30)
[2021-07-12] MEDS: KCL 10 MEQ IVPB 10 MEQ/100 ML INFUS.BAG IVPB SCH ×3 (11:34→13:13)
[2021-07-12] MEDS: PANTOPRAZOLE 40 MG TABLET PO SCH (11:34)
[2021-07-12] MEDS ORDERED: ceFAZolin SODIUM 1 GM VIAL ONE ×2 (15:49→21:44)
[2021-07-12] MEDS ORDERED: PROPOFOL 20 ML ONE (15:50)
[2021-07-12] MEDS ORDERED: SUCCINYLCHOLINE CHLORIDE 200 MG/10 ML SYRINGE ONE (15:51)
[2021-07-12] MEDS ORDERED: MIDAZOLAM HCL 2 MG/2 ML SINGLE DOSE VIAL ONE (15:51)
[2021-07-12] MEDS ORDERED: DEXAMETHASONE SOD PHOSPHATE 4 MG/1 ML VIAL ONE (15:53)
[2021-07-12] MEDS ORDERED: ONDANSETRON 4 MG/2 ML VIAL ONE (15:53)
[2021-07-12] MEDS ORDERED: DESFLURANE GAS 240 ML BOTTLE IH ONE (15:55)
[2021-07-12] MEDS ORDERED: VANCOMYCIN 1,000 MG VIAL (RESTRICTED TO ID ONLY) ONE (15:58)
[2021-07-12] MEDS ORDERED: TRANEXAMIC ACID 1000 MG/10 ML VIAL ONE (15:58)
[2021-07-12] MEDS ORDERED: HYDROmorphone HCL CARPU-JECT 1 MG/1 ML DISP.SYRIN IVPUSH PRN ×4 (16:23→20:52)
[2021-07-12] MEDS ORDERED: ONDANSETRON 4 MG/2 ML VIAL IVPUSH PRN ×3 (16:23→20:52)
[2021-07-12] MEDS ORDERED: ACETAMINOPHEN 1000 MG/100 ML VIAL IVPB PRN ×3 (16:24→20:52)
[2021-07-12] MEDS ORDERED: LACTATED RINGERS SOLUTION 1,000 ML IV SCH ×2 (16:30→20:52)
[2021-07-12] MEDS ORDERED: ACETAMINOPHEN INJECTION 100 ML IVPB ONE (19:08)
[2021-07-12] MEDS ORDERED: MAGNESIUM HYDROX 2400MG/30ML ORAL SUSPENSION 30 ML CUP PO PRN (20:52)
[2021-07-12] MEDS ORDERED: diphenhydrAMINE HCL 25 MG CAPSULE (FP) PO PRN (20:52)
[2021-07-12] MEDS ORDERED: MAG HYDROX/AL HYDROX/SIMETH 30 ML UNIT-DOSE CUP PO PRN (20:52)
[2021-07-12] MEDS ORDERED: DEXTROSE 5%-WATER 100 ML IVPB ONE (21:44)
[2021-07-12] MEDS: LACTOBACILLUS ACIDOPHILUS 1 TABLET PO SCH (21:57)
[2021-07-12] MEDS: CEFAZOLIN 2 GM in DEXTROSE 5%-WATER 100 ML IVPB SCH (21:57)
[2021-07-12] MEDS: ATORVASTATIN CA 10 MG TABLET (FP) PO SCH (21:58)
[2021-07-13] MEDS ORDERED: ceFAZolin SODIUM 1 GM VIAL ONE ×4 (02:55→21:33)
[2021-07-13] MEDS ORDERED: DEXTROSE 5%-WATER 100 ML IVPB ONE ×4 (02:55→21:34)
[2021-07-13] MEDS: CEFAZOLIN 2 GM in DEXTROSE 5%-WATER 100 ML IVPB SCH ×4 (03:03→21:40)
[2021-07-13] MEDS: oxyCODONE HCL 5 MG TABLET PO PRN ×4 (06:23→21:48)
[2021-07-13] MEDS: PRIMIDONE 50 MG TABLET PO SCH ×3 (06:23→21:46)
[2021-07-13 08:24] LABS: ACTIVATED PTT 23.9 SECONDS (25.2-36.5)
[2021-07-13 08:26] LABS: ALBUMIN 3.2 g/dl (3.4-5.0); BILIRUBIN,TOTAL 0.9 mg/dl (0.2-1); CALCIUM 8.2 mg/dl (8.5-10); CREATININE 0.5 mg/dl (0.55-1.3); MAGNESIUM 1.7 mg/dL (1.8-2.4); TOT PROT 5.8 g/dl (6.4-8.2)
[2021-07-13 08:28] LABS: INR 1.12 (0.82-1.09); PROTHROMBIN TIME (PATIENT) 12.4 SEC (10.2-13.0)
[2021-07-13] MEDS ORDERED: CELECOXIB 200 MG CAPSULE PO SCH (10:00)
[2021-07-13] MEDS: ASPIRIN COATED 81 MG TABLET.EC PO SCH ×2 (10:28→21:45)
[2021-07-13] MEDS: PANTOPRAZOLE 40 MG TABLET PO SCH (10:28)
[2021-07-13] MEDS: LACTOBACILLUS ACIDOPHILUS 1 TABLET PO SCH ×2 (10:28→21:44)
[2021-07-13] MEDS: SENNOSIDES/DOCUSATE COMBO (SENNA PLUS) TABLET (UD) PO SCH ×2 (10:29→21:47)
[2021-07-13] MEDS: MAGNESIUM OXIDE 400 MG TABLET (FP) PO SCH ×2 (10:29→21:46)
[2021-07-13] MEDS: DOCUSATE SODIUM 100 MG CAPSULE (FP) PO SCH ×2 (10:29→21:44)
[2021-07-13] MEDS: FERROUS SO4 325 MG TABLET (FP) PO SCH ×2 (10:29→21:45)
[2021-07-13] MEDS: SODIUM CHLORIDE 1 GM TABLET PO SCH ×2 (10:29→21:47)
[2021-07-13] MEDS: LOSARTAN POTASSIUM 50 MG TABLET PO SCH (10:30)
[2021-07-13 10:32] LABS: BASO % 0.4 % (0-2.0); EOS % 1.7 % (0-4.5); HEMATOCRIT 25.1 % (35.4-49); HEMOGLOBIN 8.6 GM/dL (11.7-16.9); LYMPH % 15.5 % (8-40); MCH 31.4 pg (25.7-33.7); MCHC 34.4 g/dl (32.0-35.9); MEAN CELL VOLUME 91.3 fl (80-96); MEAN PLT VOLUME 6.9 fl (7.5-11.1); MONO % 14.1 % (3.8-10.2); NEUT % 68.3 % (42.8-82.8); PLATELET COUNT 284 10^3/uL (134-434); RBC 2.75 M/mm3 (4.00-5.60); RDW 12.7 % (11.9-15.9); WHITE BLOOD COUNT 5.9 K/mm3 (4.0-10.0)
[2021-07-13] MEDS: ATORVASTATIN CA 10 MG TABLET (FP) PO SCH (21:45)
[2021-07-14] MEDS ORDERED: ceFAZolin SODIUM 1 GM VIAL ONE ×2 (03:00→11:01)
[2021-07-14] MEDS ORDERED: DEXTROSE 5%-WATER 100 ML IVPB ONE ×2 (03:00→11:01)
[2021-07-14] MEDS: CEFAZOLIN 2 GM in DEXTROSE 5%-WATER 100 ML IVPB SCH ×2 (03:03→11:03)
[2021-07-14] MEDS: PRIMIDONE 50 MG TABLET PO SCH ×2 (06:45→13:30)
[2021-07-14 08:28] LABS: ALBUMIN 3.1 g/dl (3.4-5.0); BILIRUBIN,TOTAL 0.9 mg/dl (0.2-1); CALCIUM 8.2 mg/dl (8.5-10); CREATININE 0.5 mg/dl (0.55-1.3); MAGNESIUM 1.6 mg/dL (1.8-2.4); TOT PROT 5.6 g/dl (6.4-8.2)
[2021-07-14] MEDS ORDERED: MAGNESIUM SULF 50% (8.12 MEQ/2 ML-1 GM VIAL) IVPB ONE (10:25)
[2021-07-14 11:01] LABS: BASO % 0.7 % (0-2.0); EOS % 3.2 % (0-4.5); HEMATOCRIT 26.2 % (35.4-49); LYMPH % 13.1 % (8-40); MCH 31.4 pg (25.7-33.7); MCHC 34.3 g/dl (32.0-35.9); MEAN CELL VOLUME 91.5 fl (80-96); MEAN PLT VOLUME 7.1 fl (7.5-11.1); PLATELET COUNT 342 10^3/uL (134-434); RBC 2.86 M/mm3 (4.00-5.60); RDW 12.6 % (11.9-15.9); WHITE BLOOD COUNT 6.2 K/mm3 (4.0-10.0)
[2021-07-14] MEDS: SODIUM CHLORIDE 1 GM TABLET PO SCH (11:03)
[2021-07-14] MEDS: MAGNESIUM OXIDE 400 MG TABLET (FP) PO SCH (11:03)
[2021-07-14] MEDS: PANTOPRAZOLE 40 MG TABLET PO SCH (11:03)
[2021-07-14] MEDS: ASPIRIN COATED 81 MG TABLET.EC PO SCH (11:04)
[2021-07-14] MEDS: LACTOBACILLUS ACIDOPHILUS 1 TABLET PO SCH (11:04)
[2021-07-14] MEDS: FERROUS SO4 325 MG TABLET (FP) PO SCH (11:04)
[2021-07-14] MEDS: SENNOSIDES/DOCUSATE COMBO (SENNA PLUS) TABLET (UD) PO SCH (11:04)
[2021-07-14] MEDS: LOSARTAN POTASSIUM 50 MG TABLET PO SCH (11:05)
[2021-07-14] MEDS: DOCUSATE SODIUM 100 MG CAPSULE (FP) PO SCH (11:05)
[2021-07-14] MEDS: oxyCODONE HCL 5 MG TABLET PO PRN (11:19)
[2021-07-14 14:12] VITALS: BP 141/76; PULSE 102; TEMP 97.7
== END 2021-07-14 16:25 | DRG 470 ==
LOC: FM/S 07:03
PROVIDERS: ADMIT Orthopaedic Surgery Adult Reconstructive Orthopaedic Surgery; ATTEND Orthopaedic Surgery Adult Reconstructive Orthopaedic Surgery
PROC: 0SRD0J9 Replacement of Left Knee Joint with Synthetic Substitute, Cemented, Open Approach (ICD-10-PCS; principal; 2021-07-07 11:10)
PROC: 0SCB0ZZ Extirpation of Matter from Left Hip Joint, Open Approach (ICD-10-PCS; 2021-07-12)
PROC: 30233N1 Transfusion of Nonautologous Red Blood Cells into Peripheral Vein, Percutaneous Approach (ICD-10-PCS; 2021-07-12)
DX: M17.12 Unilateral primary osteoarthritis, left knee (principal); E87.1 Hypo-osmolality and hyponatremia; D62 Acute posthemorrhagic anemia; M96.840 Postprocedural hematoma of a musculoskeletal structure following a musculoskeletal system procedure; E78.5 Hyperlipidemia, unspecified; J45.909 Unspecified asthma, uncomplicated; I10 Essential (primary) hypertension; E87.6 Hypokalemia; E83.42 Hypomagnesemia; Y83.9 Surgical procedure, unspecified as the cause of abnormal reaction of the patient, or of later complication, without mention of misadventure at the time of the procedure
CPT/HCPCS: 36415; 73560-TC-LT-FY; 73700-TC-RT; 80048; 80053; 81003; 82436; 82728; 83540; 83550; 83735; 83930; 83935; 84100; 84133; 84300; 85025; 85027; 85610; 85730; 86850; 86900; 86901; 86922; 88305-TC; 88311-TC; 93971-TC; 94760; 97010-GP; 97116-GP; 97163-GP; J0131; P9058

== ENCOUNTER 2021-09-24 15:55 | Inpatient (IN) | payer OTHER, BC ==
[2021-09-24 16:50] LABS: INR 1.13 (0.83-1.09)
[2021-09-24 16:53] LABS: ACTIVATED PTT 30.4 SECONDS (25.2-36.5)
[2021-09-24 16:57] LABS: ALBUMIN 4.4 g/dl (3.4-5.0); BILIRUBIN,TOTAL 0.8 mg/dl (0.2-1); CALCIUM 9.9 mg/dl (8.5-10); CREATININE 0.6 mg/dl (0.55-1.3); TOT PROT 7.9 g/dl (6.4-8.2)
[2021-09-24 17:04] LABS: EOS % 1.1 % (0-4.5); HEMATOCRIT 34.2 % (35.4-49); HEMOGLOBIN 11.5 GM/dL (11.7-16.9); LYMPH % 15.5 % (8-40); MCH 28.7 pg (25.7-33.7); MCHC 33.5 g/dl (32.0-35.9); MEAN CELL VOLUME 85.7 fl (80-96); MEAN PLT VOLUME 7.5 fl (7.5-11.1); MONO % 11.7 % (3.8-10.2); NEUT % 70.7 % (42.8-82.8); PLATELET COUNT 476 10^3/uL (134-434); RBC 3.99 M/mm3 (4.00-5.60); RDW 15.4 % (11.9-15.9); WHITE BLOOD COUNT 6.4 K/mm3 (4.0-10.0)
[2021-09-24 18:02] LABS: SARS AG REFLEX COV19 SEND OUT negative (Negative)
[2021-09-24] MEDS ORDERED: SODIUM CHLORIDE 0.45% 1,000 ML IV SCH (20:45)
[2021-09-24] MEDS: ATORVASTATIN CA 10 MG TABLET (FP) PO SCH (21:46)
[2021-09-24] MEDS ORDERED: HEPARIN NA (PORCINE) 5,000 UNITS/ML 1ML VIAL SQ SCH (22:00)
[2021-09-24 22:28] VITALS: BMI 23.5
[2021-09-24] MEDS: PRIMIDONE 50 MG TABLET PO SCH (23:46)
[2021-09-25] MEDS: PRIMIDONE 50 MG TABLET PO SCH ×3 (06:49→21:17)
[2021-09-25 08:26] LABS: INR 1.11 (0.83-1.09); PROTHROMBIN TIME (PATIENT) 12.8 SEC (9.7-13.0)
[2021-09-25 08:27] LABS: CALCIUM 9.1 mg/dl (8.5-10); CREATININE 0.5 mg/dl (0.55-1.3); MAGNESIUM 1.5 mg/dL (1.8-2.4); PHOSPHOROUS 4.3 mg/dl (2.5-4.9)
[2021-09-25] MEDS ORDERED: morphine CARPU-JECT 2 MG/1 ML DISP.SYRIN IVPUSH PRN (08:38)
[2021-09-25] MEDS ORDERED: D5-NS + 20 MEQ KCL - 20 MEQ/1,000 ML INFUS.BAG IV SCH (08:45)
[2021-09-25] MEDS ORDERED: MAGNESIUM OXIDE 400 MG TABLET (FP) PO ONE (08:47)
[2021-09-25] MEDS ORDERED: ACETAMINOPHEN 1000 MG/100 ML BAG IVPB PRN (08:56)
[2021-09-25] MEDS: LOSARTAN POTASSIUM 50 MG TABLET PO SCH (09:22)
[2021-09-25 09:43] LABS: HEMATOCRIT 32.1 % (35.4-49); HEMOGLOBIN 10.4 GM/dL (11.7-16.9); MCHC 32.3 g/dl (32.0-35.9); MEAN CELL VOLUME 86.7 fl (80-96); MEAN PLT VOLUME 7.9 fl (7.5-11.1); PLATELET COUNT 441 10^3/uL (134-434); WHITE BLOOD COUNT 4.4 K/mm3 (4.0-10.0)
[2021-09-25] MEDS ORDERED: morphine CARPU-JECT 2 MG/1 ML DISP.SYRIN SQ ONE (09:43)
[2021-09-25] MEDS ORDERED: HYDROCHLOROTHIAZIDE 12.5 MG CAPSULE (FP) PO SCH (10:00)
[2021-09-25] MEDS ORDERED: PATIENT'S OWN MEDICATION (NON-FORMULARY) (Telmisartan/Hydrochlorothiazid [Micardis Hct 80- PO SCH (10:00)
[2021-09-25] MEDS ORDERED: ASPIRIN COATED 81 MG TABLET.EC PO SCH (10:00)
[2021-09-25] MEDS ORDERED: morphine SULFATE 4 MG/ML VIAL IVPUSH ONE (10:00)
[2021-09-25 13:07] LABS: SARS-CoV-2 NAA Not Detected (Not Detected)
[2021-09-25] MEDS: ATORVASTATIN CA 10 MG TABLET (FP) PO SCH (21:17)
[2021-09-25] MEDS: morphine SULFATE 4 MG/ML VIAL IVPUSH PRN (21:18)
[2021-09-26] MEDS: morphine SULFATE 4 MG/ML VIAL IVPUSH PRN ×4 (02:31→21:19)
[2021-09-26] MEDS: PRIMIDONE 50 MG TABLET PO SCH ×3 (06:28→21:18)
[2021-09-26 08:46] LABS: ALBUMIN 3.8 g/dl (3.4-5.0); BILIRUBIN,TOTAL 0.6 mg/dl (0.2-1); CALCIUM 9.2 mg/dl (8.5-10); CREATININE 0.4 mg/dl (0.55-1.3); MAGNESIUM 1.5 mg/dL (1.8-2.4); PHOSPHOROUS 4.1 mg/dl (2.5-4.9); TOT PROT 6.2 g/dl (6.4-8.2)
[2021-09-26] MEDS: LOSARTAN POTASSIUM 50 MG TABLET PO SCH (09:26)
[2021-09-26] MEDS ORDERED: MAGNESIUM SULFATE IN WATER 2 GM/50 ML IVPB IVPB ONE (10:00)
[2021-09-26] MEDS: ATORVASTATIN CA 10 MG TABLET (FP) PO SCH (21:18)
[2021-09-27] MEDS: morphine SULFATE 4 MG/ML VIAL IVPUSH PRN ×2 (02:48→08:47)
[2021-09-27] MEDS: PRIMIDONE 50 MG TABLET PO SCH ×3 (06:22→21:28)
[2021-09-27] MEDS: LOSARTAN POTASSIUM 50 MG TABLET PO SCH (09:21)
[2021-09-27] MEDS ORDERED: LACTATED RINGERS SOLUTION 1,000 ML/1,000 ML INFUS.BAG IV SCH (13:00)
[2021-09-27] MEDS ORDERED: BUPIVACAINE HCL 50 ML ONE ×2 (14:10→14:34)
[2021-09-27] MEDS ORDERED: EPINEPHrine/PF 1 MG/1 ML (1:1,000) AMPULE ONE (14:10)
[2021-09-27] MEDS ORDERED: MIDAZOLAM HCL 2 MG/2 ML SINGLE DOSE VIAL ONE (14:34)
[2021-09-27] MEDS ORDERED: BUPIVACAINE LIPOSOME/PF (EXPAREL) 266 MG/20 ML VIAL ONE (14:34)
[2021-09-27] MEDS ORDERED: SODIUM CHLORIDE 0.9% P/F 10 ML VIAL IJ ONE (14:34)
[2021-09-27] MEDS ORDERED: PROPOFOL 20 ML ONE ×6 (15:18)
[2021-09-27] MEDS ORDERED: BENZOIN/ALOE VERA/STORAX/TOLU 30 ML TINCTURE ONE (15:49)
[2021-09-27] MEDS ORDERED: VANCOMYCIN 1,000 MG VIAL (RESTRICTED TO ID ONLY) ONE (15:49)
[2021-09-27] MEDS ORDERED: TRANEXAMIC ACID 1000 MG/10 ML VIAL ONE (17:42)
[2021-09-27] MEDS ORDERED: ceFAZolin SODIUM 1 GM VIAL ONE (17:47)
[2021-09-27] MEDS ORDERED: oxyCODONE HCL 5 MG TABLET PO PRN ×2 (18:10→18:12)
[2021-09-27] MEDS ORDERED: ONDANSETRON 4 MG/2 ML VIAL IVPUSH PRN ×2 (18:10→18:22)
[2021-09-27] MEDS ORDERED: LACTATED RINGERS SOLUTION 1,000 ML IV SCH ×2 (18:15→18:30)
[2021-09-27] MEDS ORDERED: MAG HYDROX/AL HYDROX/SIMETH 30 ML UNIT-DOSE CUP PO PRN (18:22)
[2021-09-27] MEDS ORDERED: MAGNESIUM HYDROX 2400MG/30ML ORAL SUSPENSION 30 ML CUP PO PRN (18:22)
[2021-09-27] MEDS: ACETAMINOPHEN 1000 MG/100 ML BAG IVPB ONE (18:25)
[2021-09-27] MEDS: oxyCODONE HCL 5 MG TABLET PO PRN ×2 (20:42→23:45)
[2021-09-27] MEDS ORDERED: HYDROmorphone HCl 2 MG/ML VIAL ONE (21:16)
[2021-09-27] MEDS: SENNOSIDES/DOCUSATE COMBO (SENNA PLUS) TABLET (UD) PO SCH (21:29)
[2021-09-27] MEDS: ASPIRIN COATED 81 MG TABLET.EC PO SCH (21:29)
[2021-09-27] MEDS: ATORVASTATIN CA 10 MG TABLET (FP) PO SCH (21:29)
[2021-09-27] MEDS ORDERED: HYDROmorphone HCl 2 MG/ML VIAL IVPUSH ONE (21:53)
[2021-09-28] MEDS ORDERED: HYDROmorphone HCl 2 MG/ML VIAL IVPB ONE (02:00)
[2021-09-28] MEDS ORDERED: HYDROmorphone HCl 2 MG/ML VIAL ONE (02:02)
[2021-09-28] MEDS: CEFAZOLIN 2 GM in DEXTROSE 5%-WATER - 50 ML IVPB SCH ×3 (02:40→17:47)
[2021-09-28] MEDS ORDERED: ceFAZolin SODIUM 1 GM VIAL ONE ×3 (03:07→17:27)
[2021-09-28] MEDS ORDERED: DEXTROSE 5%-WATER - 50 ML IVPB ONE ×3 (03:07→17:27)
[2021-09-28] MEDS: oxyCODONE HCL 5 MG TABLET PO PRN ×2 (06:45→09:32)
[2021-09-28] MEDS: PRIMIDONE 50 MG TABLET PO SCH ×3 (06:45→22:02)
[2021-09-28 08:32] LABS: ALBUMIN 3.4 g/dl (3.4-5.0); BILIRUBIN,TOTAL 0.9 mg/dl (0.2-1); CALCIUM 8.6 mg/dl (8.5-10); CREATININE 0.6 mg/dl (0.55-1.3); MAGNESIUM 1.2 mg/dL (1.8-2.4); TOT PROT 6.1 g/dl (6.4-8.2)
[2021-09-28 09:20] LABS: BASO % 0.5 % (0-2.0); EOS % 0.2 % (0-4.5); HEMATOCRIT 32.3 % (35.4-49); HEMOGLOBIN 10.6 GM/dL (11.7-16.9); LYMPH % 5.3 % (8-40); MCH 28.2 pg (25.7-33.7); MCHC 32.9 g/dl (32.0-35.9); MEAN CELL VOLUME 85.7 fl (80-96); MONO % 8.4 % (3.8-10.2); NEUT % 85.6 % (42.8-82.8); PLATELET COUNT 428 10^3/uL (134-434); RBC 3.77 M/mm3 (4.00-5.60); RDW 15.2 % (11.9-15.9); WHITE BLOOD COUNT 7.3 K/mm3 (4.0-10.0)
[2021-09-28] MEDS: LOSARTAN POTASSIUM 50 MG TABLET PO SCH (09:31)
[2021-09-28] MEDS: SENNOSIDES/DOCUSATE COMBO (SENNA PLUS) TABLET (UD) PO SCH ×2 (09:31→22:03)
[2021-09-28] MEDS: ASPIRIN COATED 81 MG TABLET.EC PO SCH ×2 (09:31→22:03)
[2021-09-28] MEDS: PANTOPRAZOLE 40 MG TABLET PO SCH (09:32)
[2021-09-28] MEDS: ACETAMINOPHEN 1000 MG/100 ML BAG IVPB ONE (09:35)
[2021-09-28] MEDS ORDERED: MAGNESIUM SULF 50% (8.12 MEQ/2 ML-1 GM VIAL) IVPB ONE (10:11)
[2021-09-28] MEDS: ACETAMINOPHEN 1000 MG/100 ML BAG IVPB SCH ×3 (12:31→23:19)
[2021-09-28] MEDS: SODIUM CHLORIDE 1 GM TABLET PO SCH ×2 (17:49→22:03)
[2021-09-28] MEDS: MAGNESIUM OXIDE 400 MG TABLET (FP) PO SCH (22:02)
[2021-09-28] MEDS: ATORVASTATIN CA 10 MG TABLET (FP) PO SCH (22:02)
[2021-09-29] MEDS: ACETAMINOPHEN 1000 MG/100 ML BAG IVPB SCH (07:02)
[2021-09-29] MEDS: PRIMIDONE 50 MG TABLET PO SCH ×3 (07:03→21:19)
[2021-09-29 08:03] LABS: ALBUMIN 3.1 g/dl (3.4-5.0); BILIRUBIN,TOTAL 0.7 mg/dl (0.2-1); CALCIUM 8.9 mg/dl (8.5-10); CREATININE 0.4 mg/dl (0.55-1.3); MAGNESIUM 1.6 mg/dL (1.8-2.4); TOT PROT 5.8 g/dl (6.4-8.2)
[2021-09-29 08:28] LABS: HEMATOCRIT 29.7 % (35.4-49); MCH 28.8 pg (25.7-33.7); MCHC 33.8 g/dl (32.0-35.9); MEAN CELL VOLUME 85.2 fl (80-96); MEAN PLT VOLUME 7.6 fl (7.5-11.1); PLATELET COUNT 370 10^3/uL (134-434); RBC 3.49 M/mm3 (4.00-5.60); RDW 15.4 % (11.9-15.9); WHITE BLOOD COUNT 7.6 K/mm3 (4.0-10.0)
[2021-09-29] MEDS ORDERED: MAGNESIUM SULF 50% (8.12 MEQ/2 ML-1 GM VIAL) IVPB ONE (10:15)
[2021-09-29] MEDS: LOSARTAN POTASSIUM 50 MG TABLET PO SCH (10:25)
[2021-09-29] MEDS: PANTOPRAZOLE 40 MG TABLET PO SCH (10:25)
[2021-09-29] MEDS: SODIUM CHLORIDE 1 GM TABLET PO SCH ×2 (10:26→21:19)
[2021-09-29] MEDS: MAGNESIUM OXIDE 400 MG TABLET (FP) PO SCH ×2 (10:26→21:19)
[2021-09-29] MEDS: ASPIRIN COATED 81 MG TABLET.EC PO SCH ×2 (10:26→21:22)
[2021-09-29] MEDS: SENNOSIDES/DOCUSATE COMBO (SENNA PLUS) TABLET (UD) PO SCH ×2 (10:27→21:19)
[2021-09-29] MEDS ORDERED: MAGNESIUM SULFATE IN WATER 2 GM/50 ML IVPB IVPB ONE (10:30)
[2021-09-29] MEDS: ATORVASTATIN CA 10 MG TABLET (FP) PO SCH (21:19)
[2021-09-29] MEDS: oxyCODONE HCL 5 MG TABLET PO PRN (22:47)
[2021-09-30] MEDS: oxyCODONE HCL 5 MG TABLET PO PRN (04:50)
[2021-09-30] MEDS: PRIMIDONE 50 MG TABLET PO SCH ×2 (06:13→14:03)
[2021-09-30] MEDS: SODIUM CHLORIDE 1 GM TABLET PO SCH (09:33)
[2021-09-30] MEDS: PANTOPRAZOLE 40 MG TABLET PO SCH (09:33)
[2021-09-30] MEDS: ASPIRIN COATED 81 MG TABLET.EC PO SCH (09:33)
[2021-09-30] MEDS: LOSARTAN POTASSIUM 50 MG TABLET PO SCH (09:33)
[2021-09-30] MEDS: MAGNESIUM OXIDE 400 MG TABLET (FP) PO SCH (09:33)
[2021-09-30] MEDS: SENNOSIDES/DOCUSATE COMBO (SENNA PLUS) TABLET (UD) PO SCH (09:34)
[2021-09-30 14:12] VITALS: BP 140/76; PULSE 84; TEMP 98
== END 2021-09-30 17:06 | disposition home or self-care (01) | DRG 493 ==
LOC: FER 15:55 → FM/S 17:45
PROVIDERS: ADMIT Internal Medicine; ATTEND Nurse Practitioner Acute Care
PROC: 0QSH34Z Reposition Left Tibia with Internal Fixation Device, Percutaneous Approach (ICD-10-PCS; principal; 2021-09-27 15:48)
DX: S82.225A Nondisplaced transverse fracture of shaft of left tibia, initial encounter for closed fracture (principal); E87.1 Hypo-osmolality and hyponatremia; M97.8XXA Periprosthetic fracture around other internal prosthetic joint, initial encounter; I10 Essential (primary) hypertension; E78.5 Hyperlipidemia, unspecified; Z96.659 Presence of unspecified artificial knee joint; W19.XXXA Unspecified fall, initial encounter; Y93.9 Activity, unspecified; Y92.89 Other specified places as the place of occurrence of the external cause; Y99.9 Unspecified external cause status
CPT/HCPCS: 36415; 71045-TC-FY; 71275-TC; 73552-TC-LT-FY; 73590-TC-LT-FY; 73700-TC-RT; 80048; 80053; 81003; 82570; 83735; 83930; 83935; 84100; 84300; 85025; 85027; 85610; 85730; 86850; 86900; 86901; 87426; 93005; 93306-TC; 94760; 97116-GP; 99285-25; C9803; Q9967; U0003; U0005